=== PATIENT | female | born 1995 | race Caucasian/White ===

== ENCOUNTER 2021-03-02 19:15 | Emergency (ER) | payer OTHER, SELFPAY ==
--- NOTE | 2021-03-02 19:18 | ED.FEMALEGU ---
HPI - Female Genitourinary General Chief complaint: Urogenital-Female Stated complaint: uti Time Seen by Provider: 03/02/21 19:20 Source: patient, RN notes reviewed and old records reviewed Mode of arrival: ambulatory Limitations: no limitations History of Present Illness HPI Narrative: 25 female presents to the [facility] with complaints of a vaginal tear that occurred 3 days ago. Now has redness and inflammation. Tender to touch. Burning with urination externally only. Denies concerns for an STD Related Data Allergies Allergy/AdvReac Type Severity Reaction Status Date / Time No Known Allergies Allergy Mild Verified 03/02/21 19:32 Review of Systems Review of Systems: All systems reviewed & are unremarkable except as noted in HPI and below Constitutional: Constitutional: Reports no additional constitutional complaints Eyes: Eyes: Reports no additional eye complaints ENT: Reports system reviewed and no additional complaints, except as documented Cardiovascular: Cardiovascular: Reports no additional cardiovascular complaints Respiratory: Respiratory: Reports no additional respiratory complaints Gastrointestinal: Gastrointestinal: Reports no additional gastrointestinal complaints Genitourinary: Genitourinary: Reports as per HPI, Reports genital lesions and Reports pelvic pain Musculoskeletal: Musculoskeletal: Reports no additional musculoskeletal complaints Integumentary/Breasts: Skin/Breast: Reports system reviewed and no additional complaints, except as docu Neurologic: Reports system reviewed and no additional complaints, except as documented Psychiatric: Psychiatric: Reports no additional psychiatric complaints Allergic/Immunologic: Allergic/Immunologic: Reports no additional allergic/immunologic complaints PMFSH Past Medical History Medical History No significant medical problems Surgical History Surgical History (Updated 03/02/21 @ 20:19 by Aurea Tolbert) No pertinent past surgical history Family History Family History Grandparent Hypertension Family history of heart disease in male family member before age 55 Diabetes mellitus Social History Social History Smoking status: Never smoker Alcohol intake: never Comments At the time of my signature, I reviewed and agree with the nursing past medical, surgical, social, and family history. There is no relevant family history pertinent to the patient complaint. Exam Const: General: healthy appearing, no acute distress and alert Nutritional Appearance: well nourished Orientation/consciousness: patient oriented x3 Limitations: no limitations HENMT: Head: normal to inspection Ears: external ears normal Eyes: Pupils: Equal, round and reactive pupils present Neck: Neck: normal visual inspection, no lymphadenopathy and no meningeal signs Chest: Chest palpation & inspection: normal inspection of the chest Resp: Effort & Inspection: normal respiratory effort Cardio: Rate: regular rate GI: GI Palp: Yes Soft to palpation and No Tenderness to palpation present (GI) : Speculum Exam - Vagina: abnormal vaginal discharge white Speculum Exam - Cervix: normal appearance of the cervix and Cervical os closed Other: Chaperoned by Karin NOVA Female genitals images: 1. Half centimeter abrasion versus tear with surrounding redness. Large amounts of thick white drainage yeast in appearance. Back/Spine/Pelvis: Back: no CVA tenderness Skin: General skin exam: normal color Rashes: no rashes Wounds: no wounds Neuro: General: patient oriented x3, moves all extremities, no meningeal signs and no focal motor deficits Speech: normal speech Gait exam (Neuro): Normal gait present Extrem: General: normal to inspection Psych: Mental Status: mental status grossly normal Affect: normal affect Attitud
[2021-03-02 19:26] VITALS: BP 134/94; PULSE 90; RESP 20; TEMP 37.2; O2SAT 100
== END 2021-03-02 20:05 | disposition home or self-care (01) ==
PROVIDERS: Emergency Provider Nurse Practitioner
DX: B37.3 Candidiasis of vulva and vagina (principal); L08.9 Local infection of the skin and subcutaneous tissue, unspecified; S30.814A Abrasion of vagina and vulva, initial encounter; X58.XXXA Exposure to other specified factors, initial encounter
CPT/HCPCS: 99213; G0463

== ENCOUNTER 2021-03-05 05:37 | Emergency (ER) | payer OTHER, SELFPAY ==
[2021-03-05 05:47] VITALS: BP 132/81; PULSE 108; RESP 20; TEMP 36.3; O2SAT 100
[2021-03-05 06:49] LABS: Add Urine Microscopic? YES; Appearance Urine Cloudy (Clear); Bacteria Urine Trace /hpf; Bilirubin Urine Negative (Negative); Blood Urine 3+ (Negative); Color Urine Yellow (Yellow); Glucose Urine UA Negative (Negative); Ketones Urine Negative (Negative); Leukocyte Esterase Ur 3+ LEU/UL (Negative); Mucus Urine Rare /lpf; Nitrate Urine Negative (Negative); Protein Urine 1+ mg/dL (Negative); RBC Urine >75 /hpf (0-2); Specific Grav Ur 1.015 (1.001-1.035); Squamous Epithelial Cell Urine Many /hpf (Few); Urobilinogen Urine Negative mg/dL (<2.0); WBC Urine >75 /hpf
--- NOTE | 2021-03-05 07:09 | ED.FEMALEGU ---
HPI - Female Genitourinary General Chief complaint: Vaginal Bleeding Stated complaint: vaginal bleed, recent vaginal tear, fever Time Seen by Provider: 03/05/21 07:06 Source: patient Mode of arrival: ambulatory Limitations: no limitations History of Present Illness HPI Narrative: Patient is a 25-year-old female complaining of worsening vaginal bleeding that started last Friday. Patient states that she was seen in urgent care diagnosed with a yeast infection, UTI and a vaginal tear, was prescribed Bactrim and Diflucan. Patient currently taking Bactrim. Patient denies any abdominal pain, nausea, vomiting, fever or chills. Related Data Allergies Allergy/AdvReac Type Severity Reaction Status Date / Time No Known Allergies Allergy Mild Verified 03/02/21 19:32 Review of Systems Review of Systems: All systems reviewed & are unremarkable except as noted in HPI and below Constitutional: Constitutional: Denies body ache(s), Denies chills, Denies excessive sweating, Denies fatigue, Denies fever(s), Denies headache(s), Denies lethargy, Denies malaise, Denies weakness and Denies weight loss Eyes: Eyes: Denies blurry vision, Denies change in vision and Denies loss of vision ENT: Denies dizziness, Denies ear discharge, Denies headache(s), Denies lip swelling, Denies epistaxis, Denies nasal congestion, Denies neck pain, Denies throat swelling and Denies tongue swelling Cardiovascular: Cardiovascular: Denies chest pain, Denies chest pain at rest, Denies chest pain with activity, Denies diaphoresis, Denies rapid heart rate, Denies edema, Denies irregular heart rhythm, Denies lightheadedness, Denies palpitations, Denies dyspnea and Denies dyspnea on exertion Respiratory: Respiratory: Denies chest congestion, Denies cough, Denies hemoptysis, Denies dyspnea and Denies dyspnea on exertion Gastrointestinal: Gastrointestinal: Denies abdominal pain, Denies melena, Denies hematochezia, Denies diarrhea, Denies nausea, Denies vomiting and Denies hematemesis Musculoskeletal: Musculoskeletal: Denies abnormal gait, Denies deformity, Denies joint swelling, Denies limited range of motion, Denies neck pain and Denies numbness Neurologic: Denies Abnormal speech present, Denies abnormal gait, Denies confusion, Denies dizziness, Denies headache(s), Denies focal weakness, Denies loss of vision, Denies numbness, Denies Other visual disturbances, Denies Sensory deficit (Neuro) and Denies weakness Psychiatric: Psychiatric: Denies confusion, Denies depression, Denies auditory hallucinations, Denies homicidal ideation and Denies suicidal ideation Endocrine: Endocrine: Denies cold intolerance, Denies excessive sweating, Denies fatigue, Denies heat intolerance and Denies palpitations Hematologic/Lymphatic: Hematologic/Lymphatic: Denies easy bleeding and Denies easy bruising Allergic/Immunologic: Allergic/Immunologic: Denies lip swelling, Denies throat swelling and Denies tongue swelling PMFSH Past Medical History Medical History No significant medical problems Surgical History Surgical History No pertinent past surgical history Family History Family History Grandparent Hypertension Family history of heart disease in male family member before age 55 Diabetes mellitus Social History Social History Smoking status: Never smoker Alcohol intake: never Exam Const: General: cooperative, healthy appearing, comfortable, no acute distress, well developed, alert and awake; No confusion Orientation/consciousness: oriented to person, oriented to place, oriented to time, patient oriented x3 and No confusion Limitations: no limitations HENMT: Head: normal to inspection, normocephalic and atraumatic Ears: hearing grossly normal bilaterally, TM nor
[2021-03-05] MEDS: SODIUM CHLORIDE 0.9% IV 1,000 ML 999 ML IV CONT (07:37)
[2021-03-05 07:54] LABS: Basophils Percent Auto 0.2 % (0.2-1.2); Eosinophils Percent Auto 0.2 % (0-4.4); Hematocrit 39.1 % (37.0-47.0); Hemoglobin 13.5 g/dL (12.0-15.0); Immature Granulocyte Absolute 0.04 K/mm3 (0.00-0.031); Immature Granulocyte Percent A 0.6 % (0-0.5); Lymphocytes Absolute Auto 1.17 K/mm3 (0.9-3.2); Mean Corpuscular HGB Conc 34.5 g/dl (32-36); Mean Corpuscular Hemoglobin 31.6 pg (26-34); Mean Corpuscular Volume 91.6 fl (80-100); Monocytes Absolute Auto 0.8 K/mm3 (0.1-0.6); Monocytes Percent Auto 12.3 % (2.6-8.5); Neutrophils Absolute Auto 4.2 K/mm3 (1.3-6.7); Neutrophils Percent Auto 67.7 % (45.5-73.1); Platelet Count Result 189 k/mm3 (150-375); Red Blood Count 4.27 M/mm3 (4.2-5.4); Red Cell Distribution Width 12.2 % (11.5-14.5); White Blood Count 6.2 K/mm3 (4.5-10.0)
[2021-03-05 08:03] LABS: Alanine Aminotransferase 44 U/L (4-35); Albumin Level 4.5 g/dL (3.5-5.1); Alkaline Phosphatase 61 U/L (38-126); Anion Gap 8 mmol/L (8-16); Aspartate Amino Transferase 33 U/L (14-36); Bilirubin,Total 0.2 mg/dL (0.2-1.3); Blood Urea Nitrogen 10 mg/dL (7-17); Calcium 9.2 mg/dL (8.4-10.2); Carbon Dioxide 28 mmol/L (22-30); Chloride 101 mmol/L (98-107); Estimated Glomerular Filt Rate > 60; Glucose 91 mg/dL (65-110); Potassium 3.8 mmol/L (3.4-5.0); Sodium 137 mmol/L (137-145)
[2021-03-05 09:05] VITALS: BP 126/78; PULSE 86; O2SAT 100
== END 2021-03-05 09:18 | disposition home or self-care (01) ==
PROVIDERS: Emergency Medicine; Emergency Provider Emergency Medicine
DX: N93.8 Other specified abnormal uterine and vaginal bleeding (principal); N39.0 Urinary tract infection, site not specified
CPT/HCPCS: 36415; 80053; 81001; 81025; 85025; 87077; 87086; 87186; 96360; 99283; J7030

== ENCOUNTER 2021-07-26 17:08 | Outpatient (RCR) | payer OTHER, SELFPAY ==
[2021-07-27] MEDS: RHO(D) IMMUNE GLOBULIN 300 MCG/2 ML SYRINGE IM (11:04)
== END 2021-10-24 23:59 | disposition home or self-care (01) ==
LOC: ANHLAB 17:08
PROVIDERS: Visit Provider Obstetrics & Gynecology
DX: O20.0 Threatened abortion (principal); Z29.13 Encounter for prophylactic Rho(D) immune globulin; O36.0190 Maternal care for anti-D [Rh] antibodies, unspecified trimester, not applicable or unspecified; Z3A.00 Weeks of gestation of pregnancy not specified
CPT/HCPCS: 36415; 85461; 90384; 96372; J2790

== ENCOUNTER 2021-11-22 10:50 | Outpatient (CLI) | payer OTHER, SELFPAY ==
[2021-11-22 12:24] LABS: Hematocrit 30.4 % (37.0-47.0); Hemoglobin 10.3 g/dL (12.0-15.0)
[2021-11-22 12:32] LABS: Glucose 1 Hour PP 50gm Dose 184 mg/dL
[2021-11-22 13:14] LABS: HIV 1/2 Ab P24 Ag Result Negative (Negative)
[2021-11-23 03:52] LABS: Vitamin D 25 Hydroxy 38.9 ng/mL
[2021-11-23] MEDS: RHO(D) IMMUNE GLOBULIN 300 MCG/2 ML SYRINGE IM (10:40)
== END 2021-11-22 10:51 | disposition home or self-care (01) ==
LOC: ANHLAB 10:57
PROVIDERS: Visit Provider Advanced Practice Midwife
DX: Z36.89 Encounter for other specified antenatal screening (principal); O36.0130 Maternal care for anti-D [Rh] antibodies, third trimester, not applicable or unspecified
CPT/HCPCS: 36415; 82306; 82947; 85014; 85018; 85461; 86703; 90384; 96372; G0432; J2790

== ENCOUNTER 2021-12-24 20:57 | Observation (INO) | payer BC, SELFPAY ==
--- NOTE | 2021-12-24 20:57 | PC.NURSE ---
Pt arrives to unit with c/o feeling a large contraction at 1900 and another one at 1999. Pt states she has had 3 bottles of water to drink today and is feeling lower abdominal cramping. Pt denies any vaginal bleeding or leaking of fluid, denies sexual intercourse in the last 24 hours, and states she had a bowel movement today before coming in. Pt to bathroom to provide urine sample prior to hooking up to the monitors.
--- NOTE | 2021-12-24 21:15 | PC.NURSE ---
Water brought to pt with encouragement to drink both cups and call for a refill when they are empty. Pt verbalizes understanding.
[2021-12-24 21:18] VITALS: BP 140/84; PULSE 104
[2021-12-24 21:29] VITALS: BMI 40.8
--- NOTE | 2021-12-24 21:35 | PC.NURSE ---
Refill of water provided at this time
--- NOTE | 2021-12-24 21:37 | OBADM ---
This patient, Kelsey Harley, admitted to the OB room OB Post 117 for observation. Patient/family oriented to hospital policies and general routines including ID bracelet, bed and alarms, visiting hours, pain management, procedures, bathroom and other care routines, personal items, smoking policy, room service/diet, and visiting hours. Patient/Family are encouraged to report perceived risks to care and to ask questions if they do not understand what they are told or what they should do.
[2021-12-24 21:52] LABS: Appearance Urine Clear (Clear); Bilirubin Urine 1+ (Negative); Blood Urine Negative (Negative); Color Urine Yellow (Yellow); Glucose Urine UA Negative (Negative); Ketones Urine 4+ mg/dL (Negative); Leukocyte Esterase Ur Negative LEU/UL (Negative); Nitrate Urine Negative (Negative); Protein Urine Trace mg/dL (Negative); Urobilinogen Urine 0.2 mg/dL (<2.0)
[2021-12-24 21:56] LABS: Bacteria Urine Trace /hpf; Mucus Urine Rare /lpf; Squamous Epithelial Cell Urine Many /hpf (Few)
[2021-12-24 21:59] LABS: Add Urine Microscopic? YES
[2021-12-24 22:00] VITALS: BP 140/84
--- NOTE | 2021-12-24 22:00 | PC.NURSE ---
Dr Santos called via development writer and informed of pt arrival, c/o contractions (one at 1900 and one at 1999), no ctx on monitor or by palpation, UA results given to provider, CAT1 tracing with reactive NST and nonstop movement seen on monitor and felt by patient. Dr Santos orders for pt to be discharged to home with education and encouragement on oral hydration and to keep scheduled NST and office appointments.
--- NOTE | 2022-01-13 10:48 | P.PNOB_ITS ---
OB - Triage/Final Diagnosis Visit Information Comments/Additional reasons for admission: I have assessed the risk for this patient, Kelsey Harley, and determined that she would benefit from observation care. Evaluation Laboratory results: Laboratory Tests 12/24/21 21:24 Urine Color Yellow Urine Appearance Clear Urine pH 6.0 Ur Specific [place] 1.020 Urine Protein Trace Urine Glucose (UA) Negative Urine Ketones 4+ H Ur Blood (Man) Negative Urine Nitrate Negative Urine Bilirubin 1+ H Urine Urobilinogen 0.2 Leukocyte Esterase Rfl Negative Urine RBC 3-5 H Urine WBC 4-6 H Ur Squamous Epith Cells Many H Urine Bacteria Trace Urine Mucus Rare Final Diagnosis (1) False labor: Code(s): O47.9 - False labor, unspecified Status: Acute
== END 2021-12-24 22:12 | disposition home or self-care (01) ==
LOC: ANHOBPP 21:02
PROVIDERS: Admitting Provider Obstetrics & Gynecology; Visit Provider Obstetrics & Gynecology
DX: O47.03 False labor before 37 completed weeks of gestation, third trimester (principal); Z3A.33 33 weeks gestation of pregnancy
CPT/HCPCS: 59025; 81001; G0378; G0379

== ENCOUNTER 2021-12-31 09:45 | Outpatient (CLI) | payer BC, SELFPAY ==
[2021-12-31 10:40] VITALS: BP 144/82
== END 2021-12-31 10:41 | disposition home or self-care (01) ==
LOC: ANHOBOP 10:44
PROVIDERS: Visit Provider Obstetrics & Gynecology
DX: O41.8X90 Other specified disorders of amniotic fluid and membranes, unspecified trimester, not applicable or unspecified (principal); Z3A.00 Weeks of gestation of pregnancy not specified
CPT/HCPCS: 59025; 84112

== ENCOUNTER 2022-01-12 09:55 | Outpatient (RCR) | payer BC, SELFPAY ==
[2021-12-19 19:02] VITALS: BP 126/77; PULSE 92
[2021-12-22 10:37] VITALS: BP 139/70; PULSE 96
[2021-12-26 18:30] VITALS: BP 129/69; PULSE 91
[2021-12-29 10:25] VITALS: BP 130/63; PULSE 91
[2022-01-02 18:12] VITALS: BP 129/73; PULSE 84
[2022-01-05 16:41] VITALS: BP 139/79; PULSE 108
[2022-01-09 18:44] LABS: Basophils Percent Auto 0.2 % (0.2-1.2); Eosinophils Absolute Auto 0.1 K/mm3 (0-0.3); Eosinophils Percent Auto 1.1 % (0-4.4); Hematocrit 31.9 % (37.0-47.0); Hemoglobin 10.8 g/dL (12.0-15.0); Immature Granulocyte Absolute 0.03 K/mm3 (0.00-0.031); Immature Granulocyte Percent A 0.4 % (0-0.5); Lymphocytes Absolute Auto 2.01 K/mm3 (0.9-3.2); Mean Corpuscular HGB Conc 33.9 g/dl (32-36); Mean Corpuscular Hemoglobin 30.3 pg (26-34); Mean Corpuscular Volume 89.6 fl (80-100); Mean Platelet Volume 10.1 fl (7.4-10.4); Monocytes Absolute Auto 0.8 K/mm3 (0.1-0.6); Monocytes Percent Auto 8.9 % (2.6-8.5); Neutrophils Absolute Auto 5.5 K/mm3 (1.3-6.7); Neutrophils Percent Auto 65.4 % (45.5-73.1); Platelet Count Result 253 k/mm3 (150-375); Red Blood Count 3.56 M/mm3 (4.2-5.4); Red Cell Distribution Width 13.6 % (11.5-14.5); White Blood Count 8.4 K/mm3 (4.5-10.0)
[2022-01-09 19:02] LABS: Alanine Aminotransferase 20 U/L (6-35); Albumin Level 3.6 g/dL (3.5-5.1); Alkaline Phosphatase 127 U/L (38-126); Anion Gap 10 mmol/L (8-16); Aspartate Amino Transferase 19 U/L (14-36); Bilirubin,Total 0.3 mg/dL (0.2-1.3); Blood Urea Nitrogen 9 mg/dL (7-17); Calcium 8.7 mg/dL (8.4-10.2); Carbon Dioxide 19 mmol/L (22-30); Chloride 106 mmol/L (98-107); Estimated Glomerular Filt Rate > 60; Glucose 106 mg/dL (65-110); Potassium 3.5 mmol/L (3.4-5.0); Sodium 135 mmol/L (137-145); Uric Acid 4.9 mg/dL (2.5-7.5)
[2022-01-09 19:07] VITALS: BP 138/83; PULSE 87
--- NOTE | 2022-01-09 19:42 | PC.NURSE ---
Received call from Anita Varghese to order [facility] labs when pt arrives for NST. pt had elevated BP in office. 1902- called Anita Varghese- labs reviewed. pt ok to d/c home.
[2022-01-12 10:57] VITALS: BP 142/85; PULSE 83
== END 2022-01-26 15:33 | disposition home or self-care (01) ==
LOC: ANHOBOP 09:55
PROVIDERS: Advanced Practice Midwife; Visit Provider Obstetrics & Gynecology
DX: O26.893 Other specified pregnancy related conditions, third trimester (principal); R03.0 Elevated blood-pressure reading, without diagnosis of hypertension; Z3A.33 33 weeks gestation of pregnancy; O24.419 Gestational diabetes mellitus in pregnancy, unspecified control; Z3A.35 35 weeks gestation of pregnancy; O16.3 Unspecified maternal hypertension, third trimester; Z3A.36 36 weeks gestation of pregnancy
CPT/HCPCS: 36415; 59025; 80053; 84550; 85025

== ENCOUNTER 2022-01-13 17:41 | Inpatient (IN) | payer BC, SELFPAY ==
[2022-01-13] VITALS (17 sets, daily range): BP systolic 109–155; BP diastolic 64–92; PULSE 102–123; RESP 18; TEMP 37.2–37.7; BMI 40.3
[2022-01-13] MEDS: LACTATED RINGERS 1,000 ML 999 ML IV CONT (18:30)
[2022-01-13 18:41] LABS: Glucose Point of Care 93 mg/dl (65-105)
[2022-01-13 19:21] LABS: Appearance Urine Clear (Clear); Basophils Percent Auto 0.2 % (0.2-1.2); Bilirubin Urine Negative (Negative); Blood Urine Negative (Negative); Color Urine Yellow (Yellow); Eosinophils Percent Auto 0.2 % (0-4.4); Glucose Urine UA Negative (Negative); Hematocrit 33.1 % (37.0-47.0); Hemoglobin 11.1 g/dL (12.0-15.0); Immature Granulocyte Absolute 0.05 K/mm3 (0.00-0.031); Immature Granulocyte Percent A 0.5 % (0-0.5); Ketones Urine 4+ mg/dL (Negative); Leukocyte Esterase Ur Negative LEU/UL (Negative); Lymphocytes Absolute Auto 0.78 K/mm3 (0.9-3.2); Lymphocytes Percent Auto 7.4 % (18.3-44.2); Mean Corpuscular HGB Conc 33.5 g/dl (32-36); Mean Corpuscular Volume 89.5 fl (80-100); Mean Platelet Volume 10.7 fl (7.4-10.4); Monocytes Absolute Auto 0.9 K/mm3 (0.1-0.6); Monocytes Percent Auto 8.6 % (2.6-8.5); Neutrophils Absolute Auto 8.7 K/mm3 (1.3-6.7); Neutrophils Percent Auto 83.1 % (45.5-73.1); Nitrate Urine Negative (Negative); Platelet Count Result 204 k/mm3 (150-375); Protein Urine Negative (Negative); Red Cell Distribution Width 13.8 % (11.5-14.5); Urobilinogen Urine 0.2 mg/dL (<2.0); White Blood Count 10.5 K/mm3 (4.5-10.0); pH Urine 6.5 (5.0-9.0)
[2022-01-13 19:28] LABS: Amorphous Sediment Urine Few; Bacteria Urine Trace /hpf; Mucus Urine Rare /lpf; Squamous Epithelial Cell Urine Occasional /hpf (Few); WBC Urine 0-3 /hpf
[2022-01-13 19:29] LABS: Add Urine Microscopic? YES
[2022-01-13 19:39] LABS: Alanine Aminotransferase 19 U/L (6-35); Albumin Level 4.1 g/dL (3.5-5.1); Alkaline Phosphatase 145 U/L (38-126); Anion Gap 8 mmol/L (8-16); Aspartate Amino Transferase 20 U/L (14-36); Bilirubin,Total 0.4 mg/dL (0.2-1.3); Blood Urea Nitrogen 5 mg/dL (7-17); Calcium 9.2 mg/dL (8.4-10.2); Carbon Dioxide 22 mmol/L (22-30); Chloride 106 mmol/L (98-107); Estimated Glomerular Filt Rate > 60; Glucose 92 mg/dL (65-110); Potassium 3.5 mmol/L (3.4-5.0); Sodium 136 mmol/L (137-145)
[2022-01-13] MEDS: LACTATED RINGERS 1,000 ML 125 ML IV CONT ×2 (19:47→22:28)
[2022-01-13 20:35] LABS: Influenza A QL RT-PCR Negative (Negative); Influenza B QL RT-PCR Negative (Negative); RSV RNA, RT-PCR Negative (Negative); SARS-CoV-2 RNA PCR Negative
--- NOTE | 2022-01-13 21:33 | OBADM ---
This patient, Kelsey Harley, admitted to the OB room Labor/Delivery/Recovery 106 for observation. Patient/family oriented to hospital policies and general routines including ID bracelet, bed and alarms, visiting hours, pain management, procedures, bathroom and other care routines, personal items, smoking policy, room service/diet, and visiting hours. Patient/Family are encouraged to report perceived risks to care and to ask questions if they do not understand what they are told or what they should do.
--- NOTE | 2022-01-13 21:54 | PM.IMHP ---
H&P: HPI History of Present Illness Date/Time: 01/13/22 21:54 delete Chief Complaint: delete [facility] Past Medical History Medical History (Updated 01/14/22 @ 18:23 by Henrietta Charles CRNA) Anxiety and depression Gestational diabetes Gestational hypertension Morbid obesity No significant medical problems Scoliosis Surgical History Surgical History No pertinent past surgical history Family History Family History Grandparent Family history of heart disease in male family member before age 55 Diabetes mellitus Hypertension Lung cancer Alcohol abuse Father Hypertension Sibling Ovarian cancer PCOS (polycystic ovarian syndrome) Bipolar 1 disorder Heart murmur Mother Bipolar 1 disorder Social History Social History Smoking status: Never smoker Second hand tobacco smoke exposure: No Alcohol intake: never Substance use: former Lack of Transportation: No Lack of Food: Never True Current Housing: I Have Housing Concerned About Future Housing: No Difficulty Paying Gas/Electric Bills: No Difficulty Paying for Meds: No Currently Unemployed: No Education: Decline to Answer Difficulty w/ Childcare or Family Care: No Spiritual care concerns: No Meds Home Medications and Allergies Home Medications Medication Instructions Recorded Confirmed Type PNV 153-FA 400 mcg-om3 35 mg-dha 2 tablet PO ONCE 01/12/22 01/14/22 History 25 mg-epa 5 mg-fish oil chew tablet ( Gummies) cholecalciferol (vitamin D3) 50 150 mcg PO DAILY 01/12/22 01/14/22 History mcg (2,000 unit) capsule (Vitamin D3) cyclobenzaprine 5 mg tablet 5 mg PO HS PRN Muscle Pain 01/12/22 01/14/22 History ferrous sulfate 143 mg (45 mg 143 mg PO DAILY 01/12/22 01/14/22 History iron) tablet,extended release insulin NPH isoph U-100 human 100 14 unit subcut HS 01/12/22 01/14/22 History unit/mL subcutaneous suspension (Novolin N NPH U-100 Insulin isophane) valacyclovir 500 mg tablet 500 mg PO DAILY 01/12/22 01/14/22 History (Valtrex) Allergies Allergy/AdvReac Type Severity Reaction Status Date / Time almond Allergy Swelling Verified 01/14/22 10:33 banana Allergy Swelling Verified 01/14/22 10:33 of Lip/Tongue/Throat bee venom protein (honey bee) Allergy Swelling Verified 01/14/22 10:33 beeswax Allergy Itching Verified 01/14/22 10:33 honey Allergy Difficulty Verified 01/14/22 10:33 Breathing kiwi Allergy Swelling Verified 01/14/22 10:33 of Lip/Tongue/Throat latex Allergy Itching Verified 01/14/22 10:33 sesame oil Allergy Swelling Verified 01/14/22 10:33 sesame seed Allergy Gastrointestinal Verified 01/14/22 10:33 Upset Vital Signs Vital Signs - 24 hr 01/13/22 17:53 01/13/22 18:16 01/13/22 18:31 Temperature 37.7 C H Pulse Rate 109 H 114 H Respiratory Rate Blood Pressure 133/87 144/84 H Oxygen Delivery 01/13/22 18:46 01/13/22 19:01 01/13/22 19:16 Temperature Pulse Rate 112 H 117 H 110 H Respiratory Rate Blood Pressure 132/65 143/73 H 136/68 Oxygen Delivery 01/13/22 19:31 01/13/22 19:46 01/13/22 20:01 Temperature Pulse Rate 123 H 111 H 107 H Respiratory Rate Blood Pressure 141/69 H 155/66 H 135/69 Oxygen Delivery 01/13/22 20:16 01/13/22 20:31 01/13/22 20:46 Temperature Pulse Rate 108 H 106 H 112 H Respiratory Rate Blood Pressure 127/67 120/79 109/64 Oxygen Delivery 01/13/22 20:00 01/13/22 21:01 01/13/22 21:16 Temperature 37.4 C Pulse Rate 104 H 102 H Respiratory Rate 18 Blood Pressure 141/92 H 145/80 H Oxygen Delivery 01/13/22 21:31 01/13/22 21:32 Temperature Pulse Rate 102 H Respiratory Rate Blood Pressure 140/67 Oxygen Delivery Room Air H&P: Results Labs Labs
[2022-01-13 22:19] LABS: Glucose Point of Care 111 mg/dl (65-105)
[2022-01-13] MEDS: INSULIN HUMAN NPH (*BKC) 100 UNITS/ML 14 UNITS SUB-Q (23:51)
[2022-01-14] VITALS (46 sets, daily range): BP systolic 120–138; BP diastolic 64–76; PULSE 94–134; RESP 17–18; TEMP 37.1–38.2; O2SAT 97–100
[2022-01-14] MEDS: ACETAMINOPHEN 500 MG TABLET 1000 MG PO ×4 (02:46→23:54)
[2022-01-14 06:25] LABS: Glucose Point of Care 84 mg/dl (65-105)
[2022-01-14] MEDS: LACTATED RINGERS 1,000 ML 125 ML IV CONT ×2 (06:25→23:58)
[2022-01-14] MEDS: ALBUTEROL SULFATE NEB 2.5 MG/3 ML INH INHALATION (06:39)
--- NOTE | 2022-01-14 08:23 | PM.IMHP ---
H&P: HPI History of Present Illness Date/Time: 01/14/22 08:23 Chief Complaint: 26-year-old 1 at 36 weeks who presented with maternal elevated body temperature and upper respiratory symptoms. She had tachycardia upon evaluation in Labor delivery. There was good variability but this tachycardia persisted for hours. She has been tested for flu, COVID, RSV. All negative. Her upper respiratory symptoms persist but the fever has resolved or elevated body temperature has resolved and tachycardia has resolved. There was good variability throughout the tachycardia episodes. Patient is to be induced tonight at midnight for gestational hypertension. She also has reasonably good controlled gestational diabetes that is insulin dependent with insulin doses at night only. She has some mild chest congestion and irritation of Denies any contractions, loss of fluid, vaginal bleeding. Review of Systems Review of Systems: All systems reviewed & are unremarkable except as noted in HPI and below Constitutional: Constitutional: Denies chills, Denies fatigue, Denies fever(s) and Denies weakness Eyes: Eyes: Denies blurry vision, Denies change in vision, Denies loss of peripheral vision, Denies loss of vision, Denies other visual disturbances and Denies eye pain ENT: Denies vertigo, Denies dizziness, Denies hearing loss, Denies mouth pain, Denies nasal obstruction, Denies neck mass and Denies neck pain Cardiovascular: Cardiovascular: Denies chest pain, Denies diaphoresis, Denies syncope, Denies leg edema and Denies dyspnea Respiratory: Respiratory: Denies chest congestion, Denies cough, Denies hemoptysis, Denies dyspnea and Denies wheezing Gastrointestinal: Gastrointestinal: Denies abdominal pain, Denies constipation, Denies diarrhea, Denies nausea and Denies vomiting Genitourinary: Genitourinary: Denies hematuria, Denies change in libido, Denies nocturia, Denies genital lesions, Denies flank pain and Denies urinary urgency Musculoskeletal: Musculoskeletal: Denies abnormal gait, Denies back pain, Denies myalgias, Denies arthralgias, Denies joint swelling, Denies muscle weakness and Denies neck pain Integumentary/Breasts: Skin/Breast: Denies swelling, Denies breast pain, Denies breast mass, Denies dry skin, Denies nipple discharge, Denies unusual bruising and Denies jaundice Neurologic: Denies Neuro-related abnormal movements, Denies Abnormal speech present, Denies abnormal gait, Denies behavioral changes, Denies confusion, Denies vertigo, Denies dizziness, Denies syncope, Denies loss of vision, Denies memory loss, Denies convulsions and Denies weakness Psychiatric: Psychiatric: Denies abnormal sleep pattern, Denies behavioral changes, Denies change in libido, Denies confusion, Denies depression, Denies anhedonia and Denies memory loss Endocrine: Endocrine: Reports no additional endocrine complaints, Denies change in libido and Denies fatigue Hematologic/Lymphatic: Hematologic/Lymphatic: Reports no additional hematologic/lymphatic complaints Allergic/Immunologic: Allergic/Immunologic: Reports no additional allergic/immunologic complaints and Denies wheezing PMFSH Past Medical History Medical History No significant medical problems Surgical History Surgical History No pertinent past surgical history Family History Family History (Updated 01/12/22 @ 13:54 by Valentine Rossi RN) Grandparent Family history of heart disease in male family member before age 55 Diabetes mellitus Hypertension Lung cancer Alcohol abuse Father Hypertension Sibling Ovarian cancer PCOS (polycystic ovarian syndrome) Bipolar 1 disorder Heart murmur Mother Bipolar 1 disorder Social History Social History Smoking status: Never smoker Alcohol intake: never Substance use: for
--- NOTE | 2022-01-14 08:37 | WPDANESEPP ---
Anes - Eval Pre Procedure Procedure: labor epidural Date/Time: 01/14/22 08:37 Preop Diagnosis: labor pain Pre Op Diagnosis: contractions Patient Data Age: 26 Gender: F Height: 1.65 m Weight: 110 kg Last Vital Signs Temp 37.2 C 01/14/22 07:09 Pulse 134 H 01/14/22 07:09 Resp 17 01/14/22 06:40 BP 137/71 01/14/22 07:09 Pulse Ox 100 01/14/22 07:08 O2 Del Method Room Air 01/13/22 21:32 Allergies Allergy/AdvReac Type Severity Reaction Status Date / Time almond Allergy Swelling Verified 01/12/22 13:40 banana Allergy Swelling Verified 01/12/22 13:40 of Lip/Tongue/Throat bee venom protein (honey bee) Allergy Swelling Verified 01/12/22 13:43 beeswax Allergy Itching Verified 01/12/22 13:40 honey Allergy Difficulty Verified 01/12/22 13:43 Breathing kiwi Allergy Swelling Verified 01/12/22 13:40 of Lip/Tongue/Throat latex Allergy Itching Verified 01/12/22 13:40 sesame oil Allergy Swelling Verified 01/12/22 13:40 sesame seed Allergy Gastrointestinal Verified 01/12/22 13:43 Upset Home Medications Medication Instructions Recorded Confirmed Type PNV 153-FA 400 mcg-om3 35 mg-dha 2 tablet PO ONCE 01/12/22 01/13/22 History 25 mg-epa 5 mg-fish oil chew tablet ( Gummies) cholecalciferol (vitamin D3) 50 150 mcg PO DAILY 01/12/22 01/13/22 History mcg (2,000 unit) capsule (Vitamin D3) cyclobenzaprine 5 mg tablet 5 mg PO HS PRN Muscle Pain 01/12/22 01/13/22 History ferrous sulfate 143 mg (45 mg 143 mg PO DAILY 01/12/22 01/13/22 History iron) tablet,extended release insulin NPH isoph U-100 human 100 14 unit subcut HS 01/12/22 01/13/22 History unit/mL subcutaneous suspension (Novolin N NPH U-100 Insulin isophane) valacyclovir 500 mg tablet 500 mg PO DAILY 01/12/22 01/13/22 History (Valtrex) Laboratory Tests 01/13/22 01/13/22 01/13/22 18:37 19:07 19:07 WBC 10.5 K/mm3 H K/mm3 (4.5-10.0) RBC 3.70 M/mm3 L M/mm3 (4.2-5.4) Hgb 11.1 g/dL L g/dL (12.0-15.0) Hct 33.1 % L % (37.0-47.0) MCV 89.5 fl fl (80-100) MCH 30.0 pg pg (26-34) MCHC 33.5 g/dl g/dl (32-36) RDW 13.8 % % (11.5-14.5) Plt Count 204 k/mm3 k/mm3 (150-375) MPV 10.7 fl H fl (7.4-10.4) Immature Gran % (Auto) 0.5 % % (0-0.5) Neut % (Auto) 83.1 % H % (45.5-73.1) Lymph % (Auto) 7.4 % L % (18.3-44.2) [place] % (Auto) 8.6 % H % (2.6-8.5) Eos % (Auto) 0.2 % % (0-4.4) Baso % (Auto) 0.2 % % (0.2-1.2) Lymph # (Auto) 0.78 K/mm3 L K/mm3 (0.9-3.2) [place] # (Auto) 0.9 K/mm3 H K/mm3 (0.1-0.6) Eos # (Auto) 0.0 K/mm3 K/mm3 (0-0.3) Baso # (Auto) 0.0 K/mm3 K/mm3 (0.0-0.1) Abs Immat Gran (auto) 0.05 K/mm3 H K/mm3 (0.00-0.031) Absolute Neuts (auto) 8.7 K/mm3 H K/mm3 (1.3-6.7) Absolute Nucleated RBC 0.0 K/mm3 K/mm3 (0.0-0.012) Nucleated RBC % 0.0 % % (0.0-0.2) Sodium 136 mmol/L L mmol/L (137-145) Potassium 3.5 mmol/L mmol/L (3.4-5.0) Chloride 106 mmol/L mmol/L (98-107) Carbon Dioxide 22 mmol/L mmol/L (22-30) Anion Gap 8 mmol/L mmol/L (8-16) BUN 5 mg/dL L mg/dL (7-17) Creatinine 0.60 mg/dL L mg/dL (0.7-1.0) Estim Creat Clear Calc Not Reportable Estimated GFR > 60 (59 - ) Glucose 92 mg/dL mg/dL (65-110) POC Capillary Glucose 93 mg/dl mg/dl (65-105) Calcium 9.2 mg/dL mg/dL (8.4-10.2) Total Bilirubin 0.4 mg/dL mg/dL (0.2-1.3) AST 20 U/L U/L (14-36) ALT 19 U/L U/L (6-35) Alkaline Phosphatase 145 U/L H U/L (38-126) Total Protein 7.0 g/dL g/dL (6.3-8.2) Albumin 4.1 g/dL g/dL (3.5-5.1) Urine Color Ur
--- NOTE | 2022-01-14 10:01 | LDADM ---
This patient, Kelsey Harley, was admitted to Labor/Delivery/Recovery 106 on 01/14/22 at 09:33. Plans for labor, pain management and were discussed with patient. Patient/family oriented to hospital policies and general routines including ID bracelet, bed and alarms, visiting hours, pain management, procedures, bathroom and other care routines, personal items, smoking policy, room service/diet and guest tray routines, security routines, and visiting hours. Patient/Family are encouraged to report perceived risks to care and to ask questions if they do not understand what they are told or what they should do. See [facility] for further documentation.
[2022-01-14 10:48] LABS: Glucose Point of Care 113 mg/dl (65-105)
[2022-01-14 13:30] LABS: Glucose Point of Care 109 mg/dl (65-105)
--- NOTE | 2022-01-14 16:49 | PC.NURSE ---
Bright light exam performed. No lesions present at this time. Patient denies having any lesions recently.
--- NOTE | 2022-01-14 18:19 | WPDANESEPP ---
Anes - Eval Pre Procedure Procedure: Labor epidural Date/Time: 01/14/22 18:19 Pre Op Diagnosis: contractions Patient Data Age: 26 Gender: F Height: 1.65 m Weight: 110 kg Last Vital Signs Temp 37.9 C H 01/14/22 16:11 Pulse 110 H 01/14/22 16:09 Resp 17 01/14/22 06:40 BP 120/67 01/14/22 16:09 Pulse Ox 97 01/14/22 16:08 O2 Del Method Room Air 01/13/22 21:32 Allergies Allergy/AdvReac Type Severity Reaction Status Date / Time almond Allergy Swelling Verified 01/14/22 10:33 banana Allergy Swelling Verified 01/14/22 10:33 of Lip/Tongue/Throat bee venom protein (honey bee) Allergy Swelling Verified 01/14/22 10:33 beeswax Allergy Itching Verified 01/14/22 10:33 honey Allergy Difficulty Verified 01/14/22 10:33 Breathing kiwi Allergy Swelling Verified 01/14/22 10:33 of Lip/Tongue/Throat latex Allergy Itching Verified 01/14/22 10:33 sesame oil Allergy Swelling Verified 01/14/22 10:33 sesame seed Allergy Gastrointestinal Verified 01/14/22 10:33 Upset Home Medications Medication Instructions Recorded Confirmed Type PNV 153-FA 400 mcg-om3 35 mg-dha 2 tablet PO ONCE 01/12/22 01/14/22 History 25 mg-epa 5 mg-fish oil chew tablet ( Gummies) cholecalciferol (vitamin D3) 50 150 mcg PO DAILY 01/12/22 01/14/22 History mcg (2,000 unit) capsule (Vitamin D3) cyclobenzaprine 5 mg tablet 5 mg PO HS PRN Muscle Pain 01/12/22 01/14/22 History ferrous sulfate 143 mg (45 mg 143 mg PO DAILY 01/12/22 01/14/22 History iron) tablet,extended release insulin NPH isoph U-100 human 100 14 unit subcut HS 01/12/22 01/14/22 History unit/mL subcutaneous suspension (Novolin N NPH U-100 Insulin isophane) valacyclovir 500 mg tablet 500 mg PO DAILY 01/12/22 01/14/22 History (Valtrex) Laboratory Tests 01/13/22 01/13/22 01/13/22 18:37 19:07 19:07 WBC 10.5 K/mm3 H K/mm3 (4.5-10.0) RBC 3.70 M/mm3 L M/mm3 (4.2-5.4) Hgb 11.1 g/dL L g/dL (12.0-15.0) Hct 33.1 % L % (37.0-47.0) MCV 89.5 fl fl (80-100) MCH 30.0 pg pg (26-34) MCHC 33.5 g/dl g/dl (32-36) RDW 13.8 % % (11.5-14.5) Plt Count 204 k/mm3 k/mm3 (150-375) MPV 10.7 fl H fl (7.4-10.4) Immature Gran % (Auto) 0.5 % % (0-0.5) Neut % (Auto) 83.1 % H % (45.5-73.1) Lymph % (Auto) 7.4 % L % (18.3-44.2) [place] % (Auto) 8.6 % H % (2.6-8.5) Eos % (Auto) 0.2 % % (0-4.4) Baso % (Auto) 0.2 % % (0.2-1.2) Lymph # (Auto) 0.78 K/mm3 L K/mm3 (0.9-3.2) [place] # (Auto) 0.9 K/mm3 H K/mm3 (0.1-0.6) Eos # (Auto) 0.0 K/mm3 K/mm3 (0-0.3) Baso # (Auto) 0.0 K/mm3 K/mm3 (0.0-0.1) Abs Immat Gran (auto) 0.05 K/mm3 H K/mm3 (0.00-0.031) Absolute Neuts (auto) 8.7 K/mm3 H K/mm3 (1.3-6.7) Absolute Nucleated RBC 0.0 K/mm3 K/mm3 (0.0-0.012) Nucleated RBC % 0.0 % % (0.0-0.2) Sodium 136 mmol/L L mmol/L (137-145) Potassium 3.5 mmol/L mmol/L (3.4-5.0) Chloride 106 mmol/L mmol/L (98-107) Carbon Dioxide 22 mmol/L mmol/L (22-30) Anion Gap 8 mmol/L mmol/L (8-16) BUN 5 mg/dL L mg/dL (7-17) Creatinine 0.60 mg/dL L mg/dL (0.7-1.0) Estim Creat Clear Calc Not Reportable Estimated GFR > 60 (59 - ) Glucose 92 mg/dL mg/dL (65-110) POC Capillary Glucose 93 mg/dl mg/dl (65-105) Calcium 9.2 mg/dL mg/dL (8.4-10.2) Total Bilirubin 0.4 mg/dL mg/dL (0.2-1.3) AST 20 U/L U/L (14-36) ALT 19 U/L U/L (6-35) Alkaline Phosphatase 145 U/L H U/L (38-126) Total Protein 7.0 g/dL g/dL (6.3-8.2) Albumin 4.1 g/dL g/dL (3.5-5.1) Urine Color Urine Appearance Uri
[2022-01-14 20:03] LABS: Glucose Point of Care 130 mg/dl (65-105)
[2022-01-14] MEDS: INSULIN HUMAN NPH (*BKC) 100 UNITS/ML 14 UNITS SUB-Q (20:27)
[2022-01-14] MEDS: OXYTOCIN 30 UNITS/NS 500 ML 30 UNITS/500 ML BAG 6 UNITS IV CONT (23:58)
[2022-01-15] VITALS (213 sets, daily range): BP systolic 106–169; BP diastolic 53–99; PULSE 43–133; RESP 20; TEMP 36.6–37.9; O2SAT 78–100
[2022-01-15 04:58] LABS: Glucose Point of Care 79 mg/dl (65-105)
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
[2022-01-15] MEDS: fentaNYL CITRATE INJ (*CRX) 100 MCG/2 ML VIAL IV PUSH ×2 (07:31→10:20)
[2022-01-15 07:51] LABS: Basophils Percent Auto 0.2 % (0.2-1.2); Eosinophils Percent Auto 0.2 % (0-4.4); Hematocrit 28.4 % (37.0-47.0); Hemoglobin 9.6 g/dL (12.0-15.0); Immature Granulocyte Absolute 0.04 K/mm3 (0.00-0.031); Immature Granulocyte Percent A 0.7 % (0-0.5); Lymphocytes Absolute Auto 0.63 K/mm3 (0.9-3.2); Lymphocytes Percent Auto 11.2 % (18.3-44.2); Mean Corpuscular HGB Conc 33.8 g/dl (32-36); Mean Corpuscular Hemoglobin 30.7 pg (26-34); Mean Corpuscular Volume 90.7 fl (80-100); Mean Platelet Volume 10.5 fl (7.4-10.4); Monocytes Absolute Auto 0.6 K/mm3 (0.1-0.6); Monocytes Percent Auto 11.2 % (2.6-8.5); Neutrophils Absolute Auto 4.3 K/mm3 (1.3-6.7); Neutrophils Percent Auto 76.5 % (45.5-73.1); Platelet Count Result 151 k/mm3 (150-375); Red Blood Count 3.13 M/mm3 (4.2-5.4); Red Cell Distribution Width 14.2 % (11.5-14.5); White Blood Count 5.6 K/mm3 (4.5-10.0)
[2022-01-15 08:01] LABS: Alanine Aminotransferase 18 U/L (6-35); Albumin Level 3.2 g/dL (3.5-5.1); Alkaline Phosphatase 133 U/L (38-126); Anion Gap 8 mmol/L (8-16); Aspartate Amino Transferase 20 U/L (14-36); Bilirubin,Total 0.4 mg/dL (0.2-1.3); Blood Urea Nitrogen 2 mg/dL (7-17); Calcium 7.8 mg/dL (8.4-10.2); Carbon Dioxide 18 mmol/L (22-30); Chloride 107 mmol/L (98-107); Estimated CRCL calculation 172 ml/min; Estimated Glomerular Filt Rate > 60; Glucose 81 mg/dL (65-110); Potassium 3.2 mmol/L (3.4-5.0); Sodium 133 mmol/L (137-145)
[2022-01-15] MEDS: LACTATED RINGERS 1,000 ML 125 ML IV CONT (08:30)
[2022-01-15] MEDS: valACYclovir HCL 500 MG TABLET PO ×2 (11:10→22:35)
[2022-01-15 11:17] LABS: Glucose Point of Care 93 mg/dl (65-105)
[2022-01-15 14:07] LABS: Glucose Point of Care 74 mg/dl (65-105)
[2022-01-15 14:46] LABS: Rapid Plasma Reagin Non-Reactive (NonReactive)
[2022-01-15 16:07] LABS: Glucose Point of Care 67 mg/dl (65-105)
--- NOTE | 2022-01-15 19:35 | PM.OBPRVD ---
OB - Delivery Note Procedure Procedure: Events: Gestational Diabetes, Gestational Hypertension and Other (viral illness) Induction method: Per Pitocin Protocol Delivery augmentation: Rupture of Membranes Delivery monitor: External FHT and Internal Uterine Route of delivery: Laceration Description: Perineal - 1st Degree Delivery repair: vicryl Specimen: Yes Quantitative Blood Loss (ml): 225 Anesthesia type: Epidural Disposition: Floor Narrative: mom and baby stable and doing skin to skin Baby Date of : 01/15/22 Time of : 19:12 Weeks of gestation at delivery: 37 Infant gender: Male Weight (pounds): 7 Weight (ounces): 9 presentation: vertex position: Left Occiput Anterior Placenta delivery description: Spontaneous Cord Vessel Description: 3 Vessels, Clamped/Cut and Delayed Cord Clamping score one minute: 9 score five minutes: 9
--- NOTE | 2022-01-15 21:46 | PC.NURSE ---
Patient transferred to post room #286 per wheelchair from labor and delivery. Support person present. Oriented to unit, room, information board, rooming in, admission packet and security measures. Patient verbalizes understanding.
[2022-01-15] MEDS: IBUPROFEN 600 MG TABLET PO (22:35)
[2022-01-16] VITALS (10 sets, daily range): BP systolic 122–149; BP diastolic 64–99; PULSE 78–113; RESP 18; TEMP 36.1–37.2; O2SAT 99–100
[2022-01-16] MEDS: ALBUTEROL SULFATE NEB 2.5 MG/3 ML INH INHALATION ×2 (02:52→23:54)
[2022-01-16 05:58] LABS: Hematocrit 28.3 % (37.0-47.0); Hemoglobin 9.4 g/dL (12.0-15.0)
--- NOTE | 2022-01-16 07:00 | PC.NURSE ---
PT introductions made and plan of care discussed per post , pain management, breast bottle feeding, pumping, daily care activities. PT and spouse both recipients of such instructions and no barriers to learning identified at this time. PT received such instructions this shift per one to one discussion , mom baby care guide and demonstrations. PT verbalized understanding of such care.
--- NOTE | 2022-01-16 07:20 | PM.OBPNVD ---
OB - PN: Subj Subjective Date/time seen: 01/16/22 07:20 s/p vaginal delivery day 1 OB - PN: Obj Data Labs CBC & Chem 7: 01/16/22 04:06 01/15/22 06:52 Labs: Laboratory Results - last 24 hr 01/14/22 01/15/22 01/15/22 10:00 06:52 06:52 WBC 5.6 RBC 3.13 L Hgb 9.6 L Hct 28.4 L MCV 90.7 MCH 30.7 MCHC 33.8 RDW 14.2 Plt Count 151 MPV 10.5 H Immature Gran % (Auto) 0.7 H Neut % (Auto) 76.5 H Lymph % (Auto) 11.2 L [place] % (Auto) 11.2 H Eos % (Auto) 0.2 Baso % (Auto) 0.2 Lymph # (Auto) 0.63 L [place] # (Auto) 0.6 Eos # (Auto) 0.0 Baso # (Auto) 0.0 Abs Immat Gran (auto) 0.04 H Absolute Neuts (auto) 4.3 Absolute Nucleated RBC 0.0 Nucleated RBC % 0.0 Sodium 133 L Potassium 3.2 L Chloride 107 Carbon Dioxide 18 L Anion Gap 8 BUN 2 L Creatinine 0.50 L Estim Creat Clear Calc 172 Estimated GFR > 60 Glucose 81 POC Capillary Glucose Calcium 7.8 L Total Bilirubin 0.4 AST 20 ALT 18 Alkaline Phosphatase 133 H Total Protein 6.0 L Albumin 3.2 L RPR Non-reactive Blood Type Antibody Screen Screen Baby's Blood Type Baby's SIOBHAN Doses of RhIg Required 01/15/22 01/15/22 01/15/22 11:12 14:05 16:00 WBC RBC Hgb Hct MCV MCH MCHC RDW Plt Count MPV Immature Gran % (Auto) Neut % (Auto) Lymph % (Auto) [place] % (Auto) Eos % (Auto) Baso % (Auto) Lymph # (Auto) [place] # (Auto) Eos # (Auto) Baso # (Auto) Abs Immat Gran (auto) Absolute Neuts (auto) Absolute Nucleated RBC Nucleated RBC % Sodium Potassium Chloride Carbon Dioxide Anion Gap BUN Creatinine Estim Creat Clear Calc Estimated GFR Glucose POC Capillary Glucose 93 74 67 Calcium Total Bilirubin AST ALT Alkaline Phosphatase Total Protein Albumin RPR Blood Type Antibody Screen Screen Baby's Blood Type Baby's SIOBHAN Doses of RhIg Required 01/16/22 01/16/22 04:06 04:06 WBC RBC Hgb 9.4 L Hct 28.3 L MCV MCH MCHC RDW Plt Count MPV Immature Gran % (Auto) Neut % (Auto) Lymph % (Auto) [place] % (Auto) Eos % (Auto) Baso % (Auto) Lymph # (Auto) [place] # (Auto) Eos # (Auto) Baso # (Auto) Abs Immat Gran (auto) Absolute Neuts (auto) Absolute Nucleated RBC Nucleated RBC % Sodium Potassium Chloride Carbon Dioxide Anion Gap BUN Creatinine Estim Creat Clear Calc Estimated GFR Glucose POC Capillary Glucose Calcium Total Bilirubin AST ALT Alkaline Phosphatase Total Protein Albumin RPR Blood Type B Negative Antibody Screen TNP Screen Negative Baby's Blood Type O pos Baby's SIOBHAN Positive Doses of RhIg Required 1 OB - PN A/P Plan day: 1 Plan: routine care Time Spent With Patient Time: Total time spent is greater than 50% in coordination of care (as documented) at patient's floor/unit and/or counseling patient: Review of Systems Review of Systems: All systems reviewed & are unremarkable except as noted in HPI and below Exam Const: General: cooperative, healthy appearing and comfortable
--- NOTE | 2022-01-16 10:28 | WPDANLDPN2 ---
Anes-Prog Note L&D Date/Time: 01/16/22 10:28 Comfortable throughout: labor and delivery Neuraxial method: epidural Epidural/Spinal procedure site: clean & non-tender Neuro status: Neuro function grossly intact. Cardiovascular status: normal Respiratory status: normal Airway patency: baseline Mental status: baseline Post-Op hydration status: normal Vital Signs: Last Vital Signs Temp 36.8 C 01/16/22 07:45 Pulse 92 01/16/22 07:45 Resp 18 01/16/22 07:45 BP 141/92 H 01/16/22 07:45 Pulse Ox 100 01/16/22 07:45 O2 Del Method Room Air 01/13/22 21:32 Pain score (VAS): 03/05 I/O: Intake & Output 01/15/22 01/16/22 01/16/22 23:59 07:59 15:59 Intake Total 960 360 Output Total 1320 Balance 960 -960 Post-procedural complaints: none Patient feedback: Patient satisfied with anesthetic care.
[2022-01-16] MEDS: ALBUTEROL SULFATE NEB 2.5 MG/3 ML INH (11:00)
[2022-01-16] MEDS: TETANUS,DIPHTHERIA,AC PERTUSSIS ADULT (0.5 ML) BOOSTRIX IM (12:59)
[2022-01-16] MEDS: ACETAMINOPHEN 325 MG TABLET 650 MG PO ×2 (13:01→19:36)
[2022-01-16] MEDS: DOCUSATE SODIUM 100 MG CAPSULE PO ×2 (13:02→17:24)
[2022-01-16] MEDS: IBUPROFEN 600 MG TABLET PO ×2 (13:02→19:36)
[2022-01-16] MEDS: POLYSACCHARIDE IRON COMPLEX 150 MG CAPSULE PO ×2 (13:03→17:23)
[2022-01-16] MEDS: LANOLIN (LANSINOH) 7.5 GM CREAM 1 APPLIC TOPICAL (13:03)
[2022-01-16] MEDS: valACYclovir HCL 500 MG TABLET PO ×2 (13:03→21:22)
[2022-01-16] MEDS: MULTIVIT/MIN/PREN/FOL AC/IRON TABLET 1 TAB PO (13:03)
[2022-01-16] MEDS: RHO(D) IMMUNE GLOBULIN 300 MCG/2 ML SYRINGE IM (14:56)
[2022-01-17] VITALS (10 sets, daily range): BP systolic 130–148; BP diastolic 79–93; PULSE 72–98; RESP 18; TEMP 36.6–37.2; O2SAT 98–100
[2022-01-17] MEDS: IBUPROFEN 600 MG TABLET PO ×3 (04:58→21:15)
--- NOTE | 2022-01-17 08:00 | PC.NURSE ---
PT introductions made and plan of care discussed per post , pain management, breast bottle feeding, pumping, daily care activities and pending discharge to home. PT and spouse both recipients of such instructions and no barriers to learning identified at this time. PT received such instructions this shift per one to one discussion , mom baby care guide and demonstrations. PT verbalized understanding of such care.
--- NOTE | 2022-01-17 09:01 | PM.OBPNVD ---
OB - PN: Subj Subjective Date/time seen: 01/17/22 09:01 Patient comments: no complaints and pain well controlled baby status: doing well [place] feeding status: breast and bottle feeding Narrative: baby in level 2 on D10 OB - PN: Obj Data Labs CBC & Chem 7: 01/16/22 04:06 01/15/22 06:52 Labs: Laboratory Results - last 24 hr 01/16/22 04:06 Blood Type B Negative Antibody Screen TNP Screen Negative Baby's Blood Type O pos Baby's SIOBHAN Positive Doses of RhIg Required 1 OB - PN A/P Plan day: 2 Plan: routine care and discharge home Time Spent With Patient Time: Total time spent is greater than 50% in coordination of care (as documented) at patient's floor/unit and/or counseling patient: Time with patient: less than 15 minutes Exam Narrative: NAD abdomen soft, nontender, fundus firm below the umbilicus Extremities nontender, 1+ edema
--- NOTE | 2022-01-17 09:05 | P.DS_ITS ---
DS: Admitting Diagnosis Discharge Date 01/17/22 Admitting Diagnosis febrile, IUP 36.6, chronic HTN, GDM DS: Discharge Diagnosis Discharge Diagnosis (1) Gestational diabetes: Code(s): O24.419 - Gestational diabetes mellitus in , unspecified control Status: Acute (2) Gestational hypertension: Code(s): O13.9 - Gestational [-induced] hypertension without significant proteinuria, unspecified trimester Status: Acute OB - DS: Summary Hospital Course Hospital Course: Kelsey was admitted one day prior to her scheduled induction with fever and tachycardia. She was tested and negative for influenza, covid, and RSV. status improved with IV hydration. She remained inpatient until her induction for hypertension was started at 37w. She proceeded to have an uncom plicated vaginal delivery and course. OB Procedures : NST and Ultrasound OB Procedures Intrapartum: Spontaneous Vag Delivery OB Procedures: : None Peripartum Data Infant Delivery Method: Natural Vaginal complications: none Status at Discharge Functional status at discharge: independent ambulation Time Spent with Patient Time attestation: Total time spent providing and/or coordinating discharge services: Exam Narrative: NAD abdomen soft, appropriately tender Ext non tender, 1+ edema DS: Data Data Completed and Pending Labs on day of discharge: Labs from last 24 hours 01/16/22 04:06 Blood Type B Negative Antibody Screen TNP Screen Negative Baby's Blood Type O pos Baby's SIOBHAN Positive Doses of RhIg Required 1 Discharge Plan Discharge Attending physician on discharge: Deja Unger Discharging Clinician: Deja Unger Anticipated Discharge Date/Time: 01/17/22 09:03 Patient Disposition: Home, Self-Care Activity: pelvic rest Diet: regular Patient Instructions: Antibiotic Form Stand Alone Forms: General Discharge Information Follow-up/Referrals: Fabricio Santos MD [Physician] - 1 Week Discharge Medications: Continued valacyclovir [Valtrex] 500 mg Tablet 500 mg PO DAILY cholecalciferol (vitamin D3) [Vitamin D3] 50 mcg (2,000 unit) Capsule 150 mcg PO DAILY ferrous sulfate 143 mg (45 mg iron) Tablet Extended Release 143 mg PO DAILY Gummies 400 mcg-35 mg- 25 mg-5 mg Tablet,Chewable 2 tablet PO ONCE cyclobenzaprine 5 mg Tablet 5 mg PO HS PRN (Reason: Muscle Pain) Discontinued Novolin N NPH U-100 Insulin 100 unit/mL Suspension 14 unit SUBCUT HS Date of admission: 01/14/22 09:33 Primary Care Provider: UNKNOWN,DOCTOR Admitting Provider: Fabricio Santos Attending physician on admission: Fabricio Santos Condition: Stable
[2022-01-17] MEDS: DOCUSATE SODIUM 100 MG CAPSULE PO ×2 (10:09→17:59)
[2022-01-17] MEDS: MULTIVIT/MIN/PREN/FOL AC/IRON TABLET 1 TAB PO (10:09)
[2022-01-17] MEDS: ACETAMINOPHEN 325 MG TABLET 650 MG PO ×2 (10:09→17:58)
[2022-01-17] MEDS: valACYclovir HCL 500 MG TABLET PO ×2 (10:10→20:02)
[2022-01-17] MEDS: POLYSACCHARIDE IRON COMPLEX 150 MG CAPSULE PO ×2 (10:10→17:59)
[2022-01-17] MEDS: ALBUTEROL SULFATE NEB 2.5 MG/3 ML INH INHALATION ×2 (10:33→17:30)
[2022-01-17] MEDS: WITCH HAZEL 40 PADS 1 PAD TOPICAL (12:09)
[2022-01-17] MEDS: MEASLES,MUMPS,RUBELLA VACCINE 0.5 ML VIAL SUB-Q (20:03)
[2022-01-21 10:33] VITALS: BP 144/89; PULSE 78; RESP 20; TEMP 36.6; O2SAT 100
== END 2022-01-17 23:35 | disposition home or self-care (01) | DRG 806 ==
LOC: ANHLDR 01-15 10:34 → ANHOB2 01-17 09:05 → ANHLDR 01-18 10:17 → ANHOB2 01-18 10:17
PROVIDERS: Advanced Practice Midwife; Admitting Provider Obstetrics & Gynecology; Visit Provider Obstetrics & Gynecology
DX: O99.52 Diseases of the respiratory system complicating childbirth (principal); O98.32 Other infections with a predominantly sexual mode of transmission complicating childbirth; Z37.0 Single live birth; O36.8330 Maternal care for abnormalities of the fetal heart rate or rhythm, third trimester, not applicable or unspecified; Z3A.37 37 weeks gestation of pregnancy; O13.4 Gestational [pregnancy-induced] hypertension without significant proteinuria, complicating childbirth; A60.09 Herpesviral infection of other urogenital tract; O70.0 First degree perineal laceration during delivery; O24.429 Gestational diabetes mellitus in childbirth, unspecified control; J06.9 Acute upper respiratory infection, unspecified; Z20.822 Contact with and (suspected) exposure to COVID-19; O36.63X0 Maternal care for excessive fetal growth, third trimester, not applicable or unspecified
CPT/HCPCS: 36415; 80053; 81001; 82948; 85014; 85018; 85025; 85461; 86592; 86850; 86880; 86900; 86901; 86902; 87637; 90384; 90710; 90715; 94640; A9270; J0131; J1815; J2590; J2790; J2795; J3010; J7120

== ENCOUNTER 2023-05-01 17:15 | Outpatient (CLI) | payer BC, SELFPAY ==
[2023-05-01 18:19] LABS: Beta HCG Quantitative 4.45 mIU/ML
== END 2023-05-01 17:16 | disposition home or self-care (01) ==
LOC: ANHLAB 17:19
PROVIDERS: Visit Provider Obstetrics & Gynecology
DX: O20.0 Threatened abortion (principal); Z3A.00 Weeks of gestation of pregnancy not specified
CPT/HCPCS: 36415; 84702

== ENCOUNTER 2024-06-15 08:20 | Emergency (ER) | payer BC, SELFPAY ==
--- NOTE | ~2024-06-15 | CT_ITS ---
CTA brain carotid Ordering provider: Faraz Leblanc MD History: . R arm/Leg/torso parasthesias . Comparison: None. Technique: CT angiogram head and neck was performed following timed intravenous injection of contrast . Thin slice axial images and reformatted coronal images were obtained. Three dimensional reformatted images of the brain were also obtained using a [employer] workstation. Radiation reduction technique ut ilized. The dose-length product was 1654.03 MGy-cm. 100 mL Omnipaque 350 was given IV. 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 Thrombosis shaun ot be excluded although this likely --ANTERIOR AND MIDDLE CEREBRAL ARTERIES AND BRANCHES: Normal caliber and contour. --INTERNAL CAROTID ARTERIES: Normal caliber and contour. --BASILAR ARTERY AND BRANCHES: Normal caliber and contour. No atheromatous disease. --POSTERIOR CEREBRAL ARTERIES: Normal caliber and contour --POSTERIOR COMMUNICATING ARTERIES: The left is demonstrated. The right is not visualized which is pr obably related to congenital absence or small size. --ANEURYSM: None visualized. --BRAIN: Normal for patient's age. --BONES AND SUPERFICIAL SOFT TISSUES: Normal. --PARANASAL SINUSES AND MASTOIDS: Normal. NECK: --RIGHT CERVICAL CAROTID SYSTEM: Normal caliber and contour. Percent stenosis per NASCET criteria is 0%. No carotid dissection. Otherwise, no significant atheromatous disease or stenosis of the cervica l carotid system. --LEFT CERVICAL CAROTID SYSTEM: Normal caliber and contour. Percent stenosis per NASCET criteria is 0%. No carotid dissection. Otherwise, no significant atheromatous disease or stenosis of the cervical carotid system. --VERTEBRAL ARTERIES: Normal caliber and contour. --VISUALIZED AORTIC ARCH AND BRANCHING VESSELS: Normal caliber and contour. No significant atheromato us disease. --SOFT TISSUES: Parapharyngeal lymph nodes are noted with the largest measures 1.1 cm on the left joshua e and on 1 0.2 cm on the right side. --CERVICAL SPINE: Normal. IMPRESSION: 1. Normal CTA head and neck. Percent stenosis per NASCET criteria is 0%. Reviewed, dictated and finalized at location A.
--- NOTE | ~2024-06-15 | XR_ITS ---
XR chest 1V Ordering provider: Faraz Leblanc MD History: 28 years Female with . numbness . Comparison: None. FINDINGS: MEDIASTINUM: The cardiac silhouette is not enlarged. LUNGS: No infiltrates, effusions or pneumothorax. OTHER: No free air under the diaphragm. IMPRESSION: No acute cardiopulmonary pathology Reviewed, dictated and finalized at location A.
[2024-06-15 08:23] VITALS: O2SAT 100
[2024-06-15 08:26] VITALS: BP 139/84; PULSE 88; RESP 16; TEMP 36.6; O2SAT 100
--- OUTSIDE RECORDS SUMMARY | 2024-06-15 08:32 | XMS_ITS | Clinical Summary ---
Author Organization [facility] Address Count includes the [facility] [place] [address] Care Team Providers Care Link Trainer Operator Name Role Phone None, Provider MD Primary Care Provider Unavaila ble Allergies Active Allergy Reactions Criticality Noted Date Comments [place] GI Upset 03/17/2018 Banana Unknown 04/20/2015 Tongue swells Bee Venom Unknown 04/20/2015 Effects breathing Grass Unknown 04/20/2015 rash Honey Unknown 04/20/2015 Swollen tongue Kiwi Extract Rash Low 01/18/2022 Latex Unknown 04/20/2015 Itch and swell, rash Sesame Oil Unknown 04/20/2015 Swollen skin, reddness , seeds hurt intestines. Medications fexofenadine (ISRA ALLERGY) 180 MG tablet Active VESTURA 3-0.02 MG tablet Take 1 tablet by mouth daily. 11/10/2023 Active sertraline (ZOLOFT) 100 MG tablet Take 1.5 tablets (150 mg total) by mouth daily. Active albuterol sulfate HFA 108 (90 Base) MCG/ACT inhaler Inhale 2 puffs into the lungs every 4 (four) hours as needed for Wheezing. 18 g 12/08/2023 Active Active Problems Problem Noted Date Diagnosed Date Allergic reaction 01/18/2022 Oral contraceptive use 11/16/2019 Hypoglycemia 11/16/2019 Obesity (BMI 30.0-34.9) 11/16/2019 Family history of type 2 diabetes mellitus in fa ther 11/16/2019 Tobacco abuse 03/17/2018 Immunizations Immunization Administration Dates Next Due Influenza Adult (Generic) 11/13/2017 Family History Medical History Relation Comments Diabetes Father Hypertension Father COPD Mother Hypertension Mother Stroke Mother Relation Status Comments Father Alive Mother Alive Social History Tobacco Use Types Packs/Day Years Used Date Smoking Tobacco: Former Cigarettes Q uit: 10/16/2019 Smokeless Tobacco: Never Tobacco Cessation:Counseling Given: Not Answered Alcohol Use Standard Drinks/Week Comments Yes 0 (1 standard drink = 0.6 oz pur e alcohol) occassionally AUDIT-C Answer Date Recorded Frequency of Alcohol Consumption Monthly or less 03/17/2018 Average Number of Drinks Not on file 019 Frequency of Binge Drinking Not on file 02/25 Comments No Sex and Gender Information Value Date Recorded Sex Assigned at Not on file Legal Sex Female 7:51 AM CDT Gender Identity Not on file Sexual Orientation Not on file Last Filed Vital Signs Vital Sign Reading Time Taken Comments Blood Pressure 139/84 12/08/2023 2:57 PM CDT Pulse 84 12/08/2023 2:57 PM CDT Temperature 36.4 C (97.5 F) 12/08/2023 2:57 PM CDT Respiratory Rate 17 12/08/2023 2:57 PM CDT Oxygen Saturation 99% 12/08/2023 2:57 PM CDT Inhaled Oxygen Concentration - - Weight 104.3 kg (230 lb) 12/08/2023 2:57 PM CDT Height 165.1 cm (5' 5 ) 12/08/2023 2:57 PM CDT Body Mass Index 38.27 12/08/2023 2:57 PM CDT Plan of Treatment Health Maintenance Due Date Last Done Comments Annual Physical 1996 Hepatitis C 12/25/2011 DTaP, Tdap and Td Vaccines (5 - Td or Tdap) 08/09/2018 08/09/2008, 09/28/1999, 08/02/1995, Additional history exists COVID-19 Vaccine ( season) 2023 Cervical Cancer Screening Pap with HPV Testing (Age 30 to 64) Every 5 Years 12/25/2023 09/11/2023 Cervical Cancer Screening Pap Smear (Age 30 to 64) Every 3 Years 09/10/2026 09/11/2023 Cervical Cancer Screening with HPV 09/10/2026 Meningococcal Vaccine Aged Out 07/24/2012 No osman alexys eligible based on patient's age to complete this topic Hepatitis B Vaccines Completed 12/26/2015, 06/06/1994, 01/28/1994, Additional history exists HPV Vaccines Aged Out No longer eligi ble based on patient's age to complete this topic Meningococcal B Vaccine Aged Out No l onger eligible based on patient's age to complete this topic Pneumococcal Vaccine: Pediatrics (0 to 5 Years) and At-Risk Patients (6 to 49 Years) Aged Out No longer eligible based on patient's age to complete this topic RSV Immunizations Under 20 Months Aged Out No longer eligible based on patient's age to complete this topic Additional Health Concerns Infection Onset Date Last Indicated Influenza - Seasonal 01/18/2022 01/18/2022 Insurance Advance Directives * Full Code (Latest Code Status on File) Date Activated Date Inactivated Comments 01/18/2022 8:42 PM 01/19/2022 1:36 AM Care Teams Link Trainer Operator Relationship Specialty Start Date End Date None, Provider, MD PCP - General UNKNOWN PHYSICIAN SPECIALTY 01/18/22
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
--- NOTE | 2024-06-15 08:35 | ECG_ITS ---
Test Date: 2024-06-15 08:38:12 Measurements Intervals [place] Rate: 87 P: 26 PA: 142 QRS: 21 QRSD: 93 T: 6 QT: 349 QTc: 420 Interpretive Statements SINUS RHYTHM BASELINE ARTIFACT- I, III, AVR, AVL, AVF, V1-V3 NORMAL ECG No previous ECG available for comparison Electronically Signed On 06-15-2024 08:43:55 CDT by Pedro Allen D.O.
[2024-06-15 08:40] LABS: BEDSIDEPREGUCG Negative (Negative)
[2024-06-15 08:42] LABS: Glucose Point of Care 83 mg/dl (65-105)
[2024-06-15 08:44] LABS: Basophils Absolute Auto 0.1 K/mm3 (0.0-0.1); Basophils Percent Auto 0.7 % (0.2-1.2); Eosinophils Absolute Auto 0.2 K/mm3 (0-0.3); Eosinophils Percent Auto 2.7 % (0-4.4); Hematocrit 43.3 % (37.0-47.0); Hemoglobin 14.3 g/dL (12.0-15.0); Immature Granulocyte Absolute 0.02 K/mm3 (0.00-0.031); Immature Granulocyte Percent A 0.3 % (0-0.5); Lymphocytes Absolute Auto 2.37 K/mm3 (0.9-3.2); Lymphocytes Percent Auto 31.5 % (18.3-44.2); Mean Corpuscular Hemoglobin 28.8 pg (26-34); Mean Corpuscular Volume 87.1 fl (80-100); Mean Platelet Volume 9.7 fl (7.4-10.4); Monocytes Absolute Auto 0.5 K/mm3 (0.1-0.6); Monocytes Percent Auto 6.1 % (2.6-8.5); Neutrophils Absolute Auto 4.4 K/mm3 (1.3-6.7); Neutrophils Percent Auto 58.7 % (45.5-73.1); Platelet Count Result 324 k/mm3 (150-375); Red Blood Count 4.97 M/mm3 (4.2-5.4); Red Cell Distribution Width 13.2 % (11.5-14.5); White Blood Count 7.5 K/mm3 (4.5-10.0)
[2024-06-15 09:01] LABS: Alanine Aminotransferase 23 U/L (6-35); Albumin Level 4.7 g/dL (3.5-5.1); Alkaline Phosphatase 74 U/L (38-126); Anion Gap 15 mmol/L (4-12); Aspartate Amino Transferase 25 U/L (14-36); Bilirubin,Total 0.4 mg/dL (0.2-1.3); Blood Urea Nitrogen 17 mg/dL (7-17); Calcium 9.3 mg/dL (8.4-10.2); Carbon Dioxide 18 mmol/L (22-30); Chloride 106 mmol/L (98-107); Estimated CRCL calculation 103 ml/min; Estimated Glomerular Filt Rate > 60; Glucose 86 mg/dL (65-110); Potassium 4.1 mmol/L (3.4-5.0); Sodium 139 mmol/L (137-145)
[2024-06-15 09:03] LABS: Prothrombin Time 13.4 Seconds (11.1-14.7)
[2024-06-15 09:04] LABS: Partial Thromboplastin Time 24.5 Seconds (22.3-36.8)
[2024-06-15 09:13] LABS: Troponin I < 0.012 ng/mL (0.000-0.034)
[2024-06-15 09:14] VITALS: BP 120/69; PULSE 82; RESP 18; O2SAT 100
--- OUTSIDE RECORDS SUMMARY | 2024-06-15 09:24 | XMS_ITS | Clinical Summary ---
Author Organization [facility] Address [facility] [place] [address] Care Team Providers Care Radio/Tv Technician Name Role Phone None, Provider MD Primary [...] 8:42 PM 01/19/2022 1:36 AM Care Teams Radio/Tv Technician Relationship Specialty Start Date End Date None, Provider, MD PCP - General UNKNOWN PHYSICIAN SPECIALTY 01/18/22
[2024-06-15] MEDS: KETOROLAC 15 MG/ML VIAL (*BKC) IV PUSH (11:24)
[2024-06-15] MEDS: ACETAMINOPHEN 500 MG TABLET 1000 MG PO (11:25)
[2024-06-15] MEDS: dexAMETHasone SOD PHOS INJ 10 MG/ML 1 ML VIAL IV PUSH (11:25)
[2024-06-15] MEDS: HYDROmorphone HCL INJ (*CRX) 2 MG/ML VIAL 0.5 MG IV PUSH (11:25)
[2024-06-15 11:38] VITALS: BP 125/65; PULSE 90; RESP 15; O2SAT 99
--- NOTE | 2024-06-15 12:14 | ED_ITS ---
HPI - General Adult General Chief complaint: Neuro Symptoms/Deficit Stated complaint: numbness to right arm and leg since Friday Time Seen by Provider: 06/15/24 08:23 History of Present Illness HPI narrative: This is a 28-year-old female presenting with right leg pain and numbness. Starting 3 days ago patient developed pain started in her right lower back and radiated down the outside of her leg. Is created a burning and numbing sensation. She has never had sciatica before. She has had symptoms like this in the past but not to this severity. She became more concerned because then she developed more in her right hand. The pain right hand has similar and feeling and is in an ulnar nerve distribution. She has also had symptoms like this in the past but have resolved without intervention. She has not taken anything for pain control. Denies any visual changes, confusion, loss of consciousness, weakness, slurred speech or facial droop. No difficulty urinating or painful vision loss. Related Data Home Medications ?Medication ?Instructions ?Recorded ?Confirmed ?Last Taken ?Type PNV 153-FA 400 mcg-om3 35 mg-dha 2 tablet PO ONCE 01/12/22 01/14/22 01/13/22 History 25 mg-epa 5 mg-fish oil chew tablet ( Gummies) cholecalciferol (vitamin D3) 50 150 mcg PO DAILY 01/12/22 01/14/22 01/13/22 History mcg (2,000 unit) capsule (Vitamin D3) cyclobenzaprine 5 mg tablet 5 mg PO HS PRN Muscle Pain 01/12/22 01/14/22 01/13/22 History ferrous sulfate 143 mg (45 mg 143 mg PO DAILY 01/12/22 01/14/22 01/13/22 History iron) tablet,extended release valacyclovir 500 mg tablet 500 mg PO DAILY 01/12/22 01/14/22 01/13/22 History (Valtrex) Allergies Allergy/AdvReac Type Severity Reaction Status Date / Time almond Allergy Swelling Verified 01/14/22 10:33 banana Allergy Swelling Verified 01/14/22 10:33 of Lip/Tongue/Throat bee venom protein (honey bee) Allergy Swelling Verified 01/14/22 10:33 beeswax Allergy Itching Verified 01/14/22 10:33 honey Allergy Difficulty Verified 01/14/22 10:33 Breathing kiwi Allergy Swelling Verified 01/14/22 10:33 of Lip/Tongue/Throat latex Allergy Itching Verified 01/14/22 10:33 sesame oil Allergy Swelling Verified 01/14/22 10:33 sesame seed Allergy Gastrointestinal Verified 01/14/22 10:33 Upset PMFSH Past Medical History Medical History Gestational diabetes Scoliosis Anxiety and depression Gestational hypertension Morbid obesity No significant medical problems Surgical History Surgical History No pertinent past surgical history Family History Family History Grandparent Family history of heart disease in male family member before age 55 Diabetes mellitus Hypertension Lung cancer Alcohol abuse Father Hypertension Sibling Ovarian cancer PCOS (polycystic ovarian syndrome) Bipolar 1 disorder Heart murmur Mother Bipolar 1 disorder Social History Social History Smoking status: Never smoker Second hand tobacco smoke exposure: No Alcohol intake: never Substance use: former Lack of Transportation: No Lack of Food: Never True Current Housing: I Have Housing Concerned About Future Housing: No Difficulty Paying Gas/Electric Bills: No Difficulty Paying for Meds: No Currently Unemployed: No Education: Decline to Answer Difficulty w/ Childcare or Family Care: No Spiritual care concerns: No Exam 2 Narrative: APPEARANCE: No apparent distress. Head: atraumatic. EYES: EOMI, NOSE: Atraumatic NECK: Trachea midline RESPIRATORY: No increased rate of breathing CARDIOVASCULAR: RRR, ABDOMINAL: Non-distended MUSCULOSKELETAl: No obvious deformities NEURO: Alert. Cranial nerves 2-12 grossly intact. Sensation light touch, motor function cerebellar function intact for 4 extremities. Gait exam was normal. Straight leg negative bilaterally SKIN:: Warm, dry. Normal color PSYCHIATRIC: Normal affect Course Vital Signs Vital signs: Vital Signs Pulse Oximetry 100 06/15/24 08:23 Temperature 97.8 F 06/15/24 08:26 Pulse Rate 90 06/15/24 11:38 Respiratory Rate 15 06/15/24 11:38 Blood Pressure 125/65 06/15/24 11:38 Pulse Oximetry 99 06/15/24 11:38 Oxygen Delivery Room Air 06/15/24 08:26 Medical Decision Making MDM Narrative Medical decision making narrative: -Course: 28-year-old female presenting with leg and arm pain. Patient's presentation is most consistent L5 sciatica. Arm pain most consistent with cervical C8. Neurologic exam is normal. There is no weakness. CT brain was unremarkable. Patient received pain medication with complete resolution of her symptoms. She is comfortable following up with a neurologist on an outpatient basis. Given return precautions. -DDX includes but is not limited to: Peripheral neuropathy, CVA, MS Vital Signs Vital Signs: Vital Signs Pulse Oximetry 100 06/15/24 08:23 Temperature 97.8 F 06/15/24 08:26 Pulse Rate 90 06/15/24 11:38 Respiratory Rate 15 06/15/24 11:38 Blood Pressure 125/65 06/15/24 11:38 Pulse Oximetry 99 06/15/24 11:38 Oxygen Delivery Room Air 06/15/24 08:26 Lab Data 06/15/24 08:39 06/15/24 08:39 Labs: Lab Results 06/15/24 06/15/24 Range/Units 08:38 08:39 WBC 7.5 (4.5-10.0) K/mm3 RBC 4.97 (4.2-5.4) M/mm3 Hgb 14.3 D (12.0-15.0) g/dL Hct 43.3 (37.0-47.0) % MCV 87.1 (80-100) fl MCH 28.8 (26-34) pg MCHC 33.0 (32-36) g/dl RDW 13.2 (11.5-14.5) % Plt Count 324 D (150-375) k/mm3 MPV 9.7 (7.4-10.4) fl Immature Gran % (Auto) 0.3 (0-0.5) % Neut % (Auto) 58.7 (45.5-73.1) % Lymph % (Auto) 31.5 (18.3-44.2) % [place] % (Auto) 6.1 (2.6-8.5) % Eos % (Auto) 2.7 (0-4.4) % Baso % (Auto) 0.7 (0.2-1.2) % Lymph # (Auto) 2.37 (0.9-3.2) K/mm3 [place] # (Auto) 0.5 (0.1-0.6) K/mm3 Eos # (Auto) 0.2 (0-0.3) K/mm3 Baso # (Auto) 0.1 (0.0-0.1) K/mm3 Abs Immat Gran (auto) 0.02 (0.00-0.031) K/mm3 Absolute Neuts (auto) 4.4 (1.3-6.7) K/mm3 Absolute Nucleated RBC 0.000 (0.0-0.012) K/mm3 Nucleated RBC % 0.0 (0.0-0.2) % PT 13.4 (11.1-14.7) Seconds INR 1.0 APTT 24.5 (22.3-36.8) Seconds Sodium 139 (137-145) mmol/L Potassium 4.1 (3.4-5.0) mmol/L Chloride 106 (98-107) mmol/L Carbon Dioxide 18 L (22-30) mmol/L Anion Gap 15 H (4-12) mmol/L BUN 17 D (7-17) mg/dL Creatinine 0.86 (0.7-1.0) mg/dL Estim Creat Clear Calc 103 ml/min Estimated GFR > 60 (59 - ) Glucose 86 (65-110) mg/dL POC Capillary Glucose 83 (65-105) mg/dl Calcium 9.3 (8.4-10.2) mg/dL Total Bilirubin 0.4 (0.2-1.3) mg/dL AST 25 (14-36) U/L ALT 23 (6-35) U/L Alkaline Phosphatase 74 (38-126) U/L Troponin I < 0.012 (0.000-0.034) ng/mL Total Protein 8.0 (6.3-8.2) g/dL Albumin 4.7 (3.5-5.1) g/dL POC Urine HCG, Qual Negative (Negative) Discharge Plan Discharge Clinical Impression: Sciatica, Cervical radiculopathy at C8 Patient Disposition: Home Condition: Stable Instructions: Antibiotic Form, Lumbar Radiculopathy (ED) Additional Instructions: You were seen in the emergency department for arm and leg pain. I believe that you have a pinched nerve that is causing your symptoms. Please use Motrin Tylenol and Robaxin for pain. Please follow-up with the neurologist listed below for further management. If you develop weakness to any extremity, confusion loss of consciousness or any new symptoms please return to ED immediately for re-evaluation. Patient Language: Kazakh Prescriptions: New acetaminophen 500 mg tablet 1,000 mg PO TID PRN (Reason: sunny) 7 Days Qty: 42 0RF ibuprofen 800 mg tablet 800 mg PO TID PRN (Reason: pain) 7 Days Qty: 21 0RF methocarbamol 750 mg tablet 1,500 mg PO TID Qty: 42 0RF No Action valacyclovir [Valtrex] 500 mg Tablet 500 mg PO DAILY cholecalciferol (vitamin D3) [Vitamin D3] 50 mcg (2,000 unit) Capsule 150 mcg PO DAILY ferrous sulfate 143 mg (45 mg iron) Tablet Extended Release 143 mg PO DAILY Gummies 400 mcg-35 mg- 25 mg-5 mg Tablet,Chewable 2 tablet PO ONCE cyclobenzaprine 5 mg Tablet 5 mg PO HS PRN (Reason: Muscle Pain) Follow-up/Referrals: Max Rao MD [Physician] - 1 Week (Peripheral neuropathy) UNKNOWN,DOCTOR [Primary Care Provider] -
== END 2024-06-15 13:33 | disposition home or self-care (01) ==
PROVIDERS: Emergency Provider Emergency Medicine
DX: M54.41 Lumbago with sciatica, right side (principal); M54.12 Radiculopathy, cervical region; F41.9 Anxiety disorder, unspecified; F32.A Depression, unspecified
CPT/HCPCS: 36415; 70496; 70498; 71045; 80053; 81025; 82948; 84484; 85025; 85610; 85730; 93005; 96374; 96375; 99284; A9270; J1100; J1171; J1885; Q9967

== ENCOUNTER 2024-06-18 11:10 | Outpatient (CLI) | payer BC, SELFPAY ==
--- NOTE | ~2024-06-18 | XR_ITS ---
Cervical Spine: AP, lateral, open-mouth views Clinical History: Pain Findings: There is mild reversal normal cervical lordosis. The vertebral bodies and posterior elemen ts appear intact. The intervertebral disc spaces are well maintained. Pre-vertebral soft tissues are unremarkable. Impression: Mild reversal of the normal cervical lordosis. Reviewed, dictated and finalized at [facility]. Impression: Mild reversal of the normal cervical lordosis.
--- NOTE | ~2024-06-18 | XR_ITS ---
Lumbosacral Spine: AP and lateral views Clinical History: Pain Findings: The normal lordotic curve is maintained. The vertebral bodies and posterior elements are i ntact. The intervertebral disc spaces are preserved. The sacroiliac joints are normally outlined. Impression: No significant abnormality. Reviewed, dictated and finalized at [facility]. Impression: No significant abnormality.
--- NOTE | ~2024-06-18 | XR_ITS ---
Thoracic spine: Clinical Indication: Back pain, numbness AP and lateral views were performed. No fracture is seen. There is normal alignment of the vertebrae. The intervertebral disc spaces appe ar normal. Paravertebral soft tissues appear normal. Impression: No significant abnormalities noted. Reviewed, dictated and finalized at [facility]. Impression: No significant abnormalities noted.
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
--- OUTSIDE RECORDS SUMMARY | 2024-06-18 11:33 | XMS_ITS | Patient Health Record ---
Author Organization [facility] [employer] Address [address] [place] [address] Care Team Providers Care Animal Nutrition Consultant Name Role Phone Patricia Gacria Unavailable [phone] Emerita Michele Unavailable [phone] Migration, Provider Unavailable Unavailable Allergies Allergen (clinical [...] 2 Fatigue, unspecified type (R53.83) Referral Organization [facility] Referring Provider First Name Thensuman Referring Provider [...] (28) 3 MG-0.02 MG TABLET *Reorder from [employer] for eRx and Interaction Alerts* 07/04/2023 Active [...] Severe recurrent major depression without psychotic features (16123122) Major depressive disorder, recurrent severe without psychotic features (F33.2) Active confirmed Problem Post-traumatic stress disorder (59472804) Post-traumatic stress disorder, unspecified (F43.10) Active confirmed Problem Primary insomnia (5781966) Primary insomnia (F51.01) Active confirmed Problem Asperger's syndrome (76499626) Asperger's syndrome (F84.5) Active confirmed Problem 29796360 Autism spectrum disorder (F84.0) Active confirmed Problem 25057988 Fatigue, unspecified type (R53.83) Active confirmed Problem 21701028 Hypersomnia (G47.10) Active confirmed Vital Signs Heart Rate 105 /min 05/28/2024 Blood pressure diastolic 88 mm Hg 05/28/2024 Height-cm 165.10 cm 05/28/2024 Weight-kg 110.22 kg 05/28/2024 Height 65.00 in 05/28/2024 Blood pressure systolic 119 mm Hg 05/28/2024 Weight 243 lbs 05/28/2024 BMI 40.43 kg/m2 05/28/2024 Encounters Encounter Location Date Provider Diagnosis [facility] [address] [facility] [address] [address] 07/04/2023 Thena Leny Major depressive disorder, recurrent severe without psychotic features F33.2 ; Asperger's syndrome F84.5 and Post-traumatic stress disorder, unspecified F43.[address] [place] [address] [facility] [address] [address] 08/14/2023 Thena Leny Major depressive disorder, recurrent severe without psychotic features F33.2 ; Post-traumatic stress disorder, unspecified F43.10 ; Asperger's syndrome F84.5 ; Hypersomnia G47.10 and Fatigue, unspecified type R53.[address] [place] [address] [facility] [address] [address] 10/14/2023 Thena Leny [place] [address] [facility] [address] [address] 10/17/2023 Thena Leny Major depressive disorder, recurrent severe without psychotic features F33.2 ; Post-traumatic stress disorder, unspecified F43.10 ; Fatigue, unspecified type R53.83 ; Hypersomnia G47.10 and Autism spectrum disorder F84.0 [place] [address] [facility] [address] [address] 01/09/2024 Thena Leny [address] [address] 02/13/2024 Thena Leny Major depressive disorder, recurrent severe without psychotic features F33.2 ; Post-traumatic stress disorder, unspecified F43.10 and Autism spectrum disorder F84.0 [facility] [address] [facility] [address] [address] 05/28/2024 Patricia Radha Post-traumatic stres s disorder, unspecified F43.10 ; Primary insomnia F51.01 ; Encounter for screening for depression Z13.31 ; Major depressive disorder, recurrent severe without psychotic features F33.2 and Encounter for screening for cardiovascular disorders Z13.[address] [place] [address] [facility] [address] [address] 07/12/2023 Provider Migration [facility], [facility] [address] [place] [address] 07/13/2023 Provider Migration [facility], [facility] [address] [place] [address] 08/21/2023 [facility] [address] [place] [address] 09/02/2023 [facility] [address] [place] [address] 01/08/2024 Thena Leny [facility], [facility] [address] [place] [address] 02/13/2024 [facility] [address] [place] [address] 08/06/2023 Thena Leny Major depressive disorder, recurrent severe without psychotic features F33.2 ; Post-traumatic stress disorder, unspecified F43.10 and Asperger's syndrome F84.5 [facility] [address] [place] [address] 01/09/2024 [facility] [address] [place] [address] 05/13/2024 Patricia Radha Major depressive disorder, recurrent severe without psychotic features F33.2 [facility] [address] [place] [address] 05/13/2024 Patricia Radha Major depressive disorder, recurrent [...] WHW PRN for insomnia -referral sent to [facility] last year, encouraged to schedule [...] Name:Desi Gay lambertyoel, 11/26/2024 08:30:00 AM, [address] [facility] [address], [facility] [address], [place], [address], Insurance Providers Payer Name Payer Address Payer Phone Subscriber Number Group Number Insured Name Patient Relationship to Insured Coverage Start Date Coverage End Date [facility] [address] [place] [address] [id number] ALEXIA GOZNALES Self - patient is the insured Medical [...]
--- OUTSIDE RECORDS SUMMARY | 2024-06-18 11:34 | XMS_ITS | Clinical Summary ---
Author Organization [facility] Address [facility] [place] [address] Care Team Providers Care Printed Circuit Board Panels Developer Name Role Phone None, Provider MD Primary [...] 8:42 PM 01/19/2022 1:36 AM Care Teams Printed Circuit Board Panels Developer Relationship Specialty Start Date End Date None, Provider, MD PCP - General UNKNOWN PHYSICIAN SPECIALTY 01/18/22
== END 2024-06-18 11:11 | disposition home or self-care (01) ==
LOC: CHSIMG 11:12
PROVIDERS: PCP Family Medicine; Visit Provider Family Medicine
DX: M54.9 Dorsalgia, unspecified (principal); M43.8X2 Other specified deforming dorsopathies, cervical region
CPT/HCPCS: 72040; 72072; 72100

== ENCOUNTER 2024-06-26 07:35 | Outpatient (CLI) | payer BC, SELFPAY ==
--- NOTE | ~2024-06-26 | MR_ITS ---
EXAMINATION: MR brain/brain stem wo/w con DATE: 06/26/2024 08:28 INDICATION: Headache. Numbness to right arm and leg. TECHNIQUE: Magnetic resonance imaging (MRI) of the brain and brainstem was performed without and with 20 mL Multihance intravenous contrast. Sequences included sagittal and axial T1-weighted SE, axial d iffusion-weighted FS SE, axial T2*-weighted GRE, axial T2-weighted FLAIR, and axial T2-weighted FSE. Postcontrast axial and coronal T1-weighted SE was obtained. Apparent diffusion coefficient (ADC) maps were created. COMPARISON: Head CT and CT angiogram FINDINGS: There are no areas of restricted diffusion to suggest acute infarction. No intracranial hemorrhage or abnormal intracranial mass lesion. There are no intraparenchymal signal abnormalities seen on the ot her pulse sequences. The ventricles are symmetric and normal in size. There are no abnormal extra-axi al fluid collections. Flow voids are seen in the cerebral arteries on the T2-weighted sequences consi stent with their expected patency. Incidental 1.5 x 0.9 cm ovoid T2 hyperintense nonenhancing fossa o f Rosenmuller retention cyst with chronic remodeling of the adjacent bone evident on prior CT. Visual ized orbits and soft tissues are unremarkable. There are no areas of abnormal enhancement on the post contrast images. IMPRESSION: 1. Normal brain. Reviewed, dictated and finalized at location A. IMPRESSION: 1. Normal brain.
--- OUTSIDE RECORDS SUMMARY | 2024-06-26 15:50 | XMS_ITS | Patient Health Record ---
Author Organization [facility] [employer] Address [address] [place] [address] Care Team Providers Care Stranding Machine Operator Helper Name Role Phone Patricia Garcia Unavailable [phone] Emerita Michele Unavailable [phone] Migration, Provider Unavailable Unavailable Allergies Allergen (clinical [...] 2 Fatigue, unspecified type (R53.83) Referral Organization [facility] [employer] [facility] Referring Provider First Name Thensuman Referring [...] (28) 3 MG-0.02 MG TABLET *Reorder from [employer] for eRx and Interaction Alerts* 07/04/2023 Active [...] Severe recurrent major depression without psychotic features (28284251) Major depressive disorder, recurrent severe without psychotic features (F33.2) Active confirmed Problem Post-traumatic stress disorder (95216790) Post-traumatic stress disorder, unspecified (F43.10) Active confirmed Problem Primary insomnia (5633035) Primary insomnia (F51.01) Active confirmed Problem Asperger's syndrome (69075697) Asperger's syndrome (F84.5) Active confirmed Problem 75718317 Autism spectrum disorder (F84.0) Active confirmed Problem 38019198 Fatigue, unspecified type (R53.83) Active confirmed Problem 13071949 Hypersomnia (G47.10) Active confirmed Vital Signs Heart Rate 105 /min 05/28/2024 Blood pressure diastolic 88 mm Hg 05/28/2024 Height-cm 165.10 cm 05/28/2024 Weight-kg 110.22 kg 05/28/2024 Height 65.00 in 05/28/2024 Blood pressure systolic 119 mm Hg 05/28/2024 Weight 243 lbs 05/28/2024 BMI 40.43 kg/m2 05/28/2024 Encounters Encounter Location Date Provider Diagnosis [facility] [address] [facility] [address] [address] 07/04/2023 Thena Leny Major depressive disorder, recurrent severe without psychotic features F33.2 ; Asperger's syndrome F84.5 and Post-traumatic stress disorder, unspecified F43.10 [place] [id number] [facility] [address] [address] 08/14/2023 Thena Leny Major depressive disorder, recurrent severe without psychotic features F33.2 ; Post-traumatic stress disorder, unspecified F43.10 ; Asperger's syndrome F84.5 ; Hypersomnia G47.10 and Fatigue, unspecified type R53.83 [place] [id number] [facility] [address] [address] 10/14/2023 Thena Leny [place] [address] [facility] [address] [address] 10/17/2023 Thena Leny Major depressive disorder, recurrent severe without psychotic features F33.2 ; Post-traumatic stress disorder, unspecified F43.10 ; Fatigue, unspecified type R53.83 ; Hypersomnia G47.10 and Autism spectrum disorder F84.0 [place] [id number] [facility] [address] [address] 01/09/2024 Thena Leny [address] [address] 02/13/2024 Thena Leny Major depressive disorder, recurrent severe without psychotic features F33.2 ; Post-traumatic stress disorder, unspecified F43.10 and Autism spectrum disorder F84.0 [facility] [address] [facility] [address] [address] 05/28/2024 Patricia Radha Post-traumatic stres s disorder, unspecified F43.10 ; Primary insomnia F51.01 ; Encounter for screening for depression Z13.31 ; Major depressive disorder, recurrent severe without psychotic features F33.2 and Encounter for screening for cardiovascular disorders Z13.6 [place] [id number] [facility] [address] [address] 07/12/2023 Provider Migration [facility], [facility] [address] [place] [address] 07/13/2023 Provider Migration [facility], [facility] [address] [place] [address] 08/21[facility] [address] [place] [address] 09/02/2023 [facility] [address] [place] [address] 01/08/2024 Thena Leny [facility], [facility] [address] [place] [address] [facility] [address] [place] [address] 08/06/2023 Thena Leny Major depressive disorder, recurrent severe without psychotic features F33.2 ; Post-traumatic stress disorder, unspecified F43.10 and Asperger's syndrome F84.5 [facility] [address] [place] [address] 01/09/2024 [facility] [address] [place] [address] 05/13/2024 Patricia Radha Major depressive disorder, recurrent severe without psychotic features F33.2 [facility] [address] [place] [address] 05/13/2024 Patricia Radha Major depressive disorder, recurrent [...] WHW PRN for insomnia -referral sent to [facility] last year, encouraged to schedule [...] Name:Desi Gay lambertyoel, 11/26/2024 08:30:00 AM, [address] [facility] [address], [facility] [address], [place], [address], Insurance Providers Payer Name Payer Address Payer Phone Subscriber Number Group Number Insured Name Patient Relationship to Insured Coverage Start Date Coverage End Date [facility] [address] [place] [address] [id number] ALEXIA GONZALES Self - patient is the [...]
--- OUTSIDE RECORDS SUMMARY | 2024-06-26 15:50 | XMS_ITS | Continuity of Care Document ---
Author Organization [employer] [facility] Address [address] [place] [address] [address] [place] [address] Phone Care Team Providers [employer] Secretary Name Role Phone Yanelis DPT, Remedios Unavailable Unavailable Procedures Procedure Date PT RE-EVALUATION THERAPEUTIC EXERCISES NEUROMUSCULAR RE-ED MANUAL THERAPY THERAPEUTIC EXERCISES NEUROMUSCULAR RE-ED MANUAL THERAPY HOT/COLD PACK THERAPEUTIC EXERCISES NEUROMUSCULAR RE-ED MANUAL THERAPY THERAPEUTIC EXERCISES NEUROMUSCULAR RE-ED MANUAL THERAPY HOT/COLD PACK PT RE-EVALUATION THERAPEUTIC EXERCISES NEUROMUSCULAR RE-ED MANUAL THERAPY FUNC ACTIVITY THERAPEUTIC EXERCISES NEUROMUSCULAR RE-ED MANUAL THERAPY FUNC ACTIVITY THERAPEUTIC EXERCISES NEUROMUSCULAR RE-ED MANUAL THERAPY FUNC ACTIVITY HOT/COLD PACK THERAPEUTIC EXERCISES NEUROMUSCULAR RE-ED MANUAL THERAPY FUNC ACTIVITY THERAPEUTIC EXERCISES NEUROMUSCULAR RE-ED MANUAL THERAPY FUNC ACTIVITY PT EVALUATION THERAPEUTIC EXERCISES NEUROMUSCULAR RE-ED Advance Directives Directive Yes / No Effective Date File Name No Information Encounters Encounter Description Practice Location Reason(s) For Visit Diagnoses Date Provider Providers Copied on Encounter [address], [place], [place], [id number], tel:[phone] [place] No Information May-2 7-201 6 [place] Remedios. [address] [place] [address], [address], [place], [place], [facility], . tel: [phone] [address], [place], [place], [id number], tel:[phone] [place] No Information May-1 8-201 6 Yanelis Remedios. [address] [place] [address], [address], [place], [place], [facility], . tel: [phone] [address], [place], [place], [address], tel:[phone] [place] No Information May-1 5-201 6 Yanelis Remedios. [address] [place] [address], [address], [place], [place], [facility], [place]. tel: [phone] [place], [place] [address], [place], [place], [id number], tel:[phone] [place] No Information May-0 8-201 6 [place] Remedios. [address] [place] [address], [address], [place], [facility], [place]. tel: [phone] [address], [place], [place], [id number], [place] tel:[phone] [place] No Information Apr-0 4-201 6 Yanelis Remedios. [address] [place] [address], [address], [place], [place], [facility], . tel: [phone] [address], [place], [place], [address], [place] tel:[phone] [place] No Information Mar-3 0-201 6 [place] Remedios. [address] [place] [address], [facility], [place], [place], [facility], . tel: [phone] [place] [address], [place], [place], [id number], tel:[phone] [place] No Information Apr-2 3-201 6 Yanelis Remedios. [address] [place] [address], [facility] [address], [place], [facility], . tel:[phone], [place], [place], [id number], tel:[phone] [place] No Information 8-201 6 [place] Remedios. [address] [place] [address], [facility] [address], [place], [facility], . tel: [phone] [address], [id number], tel:[phone] [place] No Information 6-201 6 [place] Remedios. [address] [place] [address], [facility], [place], [place], [facility], . tel:[phone], [id number], tel:[phone] [place] Pain in right shoulderStiffnes s of right shoulder, not elsewhere classifiedMuscle weakness (generalized)Cer vicalgia Apr- 1-201 6 [place] Remedios. [address] [place] [address], [facility], [place], [place], [facility], . tel:[phone] Family History Family Member Type Diagnosis Age At Onset No Information Payers Payer name Insurance type Covered alliance party ID Authoriza tion(s) No Information Social History Type Description Quantity Date Captured Comments Sex Female Smoking Status No Information Chief Complaint And Reason For Visit No Information Reason For Referral Reason For Referral No Information History Of Present Illness Encounter Date Complaint History Of Prese nt Illness No Information Functional Status Date Functional Assessmen t No Information Instructions Date Instruction Additional Infor mation No Information Assessments Type Assessment Date No Information Patient Care Teams Name Effective Dates (start - stop) Status Members No Information
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
--- OUTSIDE RECORDS SUMMARY | 2024-06-26 15:51 | XMS_ITS | Clinical Summary ---
Author Organization [facility] Address [facility] [place] [address] Care Team Providers Care Car Head Liner Installer Name Role Phone None, Provider MD Primary [...] 8:42 PM 01/19/2022 1:36 AM Care Teams Car Head Liner Installer Relationship Specialty Start Date End Date None, Provider, MD PCP - General UNKNOWN PHYSICIAN SPECIALTY 01/18/22
== END 2024-06-26 07:36 | disposition home or self-care (01) ==
LOC: CHSIMG 07:38
PROVIDERS: PCP Family Medicine; Visit Provider Family Medicine
DX: R51.9 Headache, unspecified (principal)
CPT/HCPCS: 70553; A9577

== ENCOUNTER 2024-07-06 08:40 | Outpatient (RCR) | payer BC, SELFPAY ==
--- NOTE | 2024-07-06 13:10 | OPREHPOC ---
Outpatient Therapy Plan of Care This is a Multidisciplinary Plan of Care that may contain components documented by all disciplines (PT, OT, and ST.) PT Problem 1 PT Problem #1 Knowledge Deficit PT Goal 1 Goal / Goal Update independent and compliant with HEP Target Visit 5 PT Problem 2 PT Problem #2 Pain PT Goal 1 Goal / Goal Update decrease lower back pain to 2/10 or less at worst Target Visit 10 PT Problem 3 PT Problem #3 Impaired Range of Motion PT Goal 1 Goal / Goal Update arom cervical extension to 45 degrees arom lumbar mobility to 100% without increased pain Target Visit 10 PT Problem 4 PT Problem #4 Impaired Strength PT Goal 1 Goal / Goal Update 5/5 bilateral gross UE strength 5/5 bilateral gross LE strength 4-/5 or better core strength Target Visit 10 PT Problem 5 PT Problem #5 Impaired Functional Mobility PT Goal 1 Goal / Goal Update oswestry to display 30% or less functional deficits NDI to display 20% or less functional deficits patient to tolerate sitting in a desk chair for 1 hour or more at a time patient to tolerate play and care of her child without increased symptoms Target Visit 10
--- NOTE | 2024-07-06 13:10 | PTOPEVAL1 ---
Assessment and note entered by JT File, PT Evaluation Information Assessment Status Evaluation ICD-10 Condition Codes (PT) Pain in low back M54.50,Radiculopathy, lumbar region M54.16 Onset 06/12/24 Subjective Information patient reports she has pain in the lower back and travels up to the neck and then she will get weakness and tingling in the R arm in the pinky finger. she reports she also get radicular symptoms into the R LE. she reports it will go down to the ankle along the outside of the R foot and pinky toe. she reports she has increased symptoms with walking, lifting objects more than 50lbs from the floor, a gallon of milk in the R hand, and sitting up for too long. she reports she tolerates the couch for an hour and the desk chair for 30 minutes. she reports standing and bending to reach into the dryer or dress her son will cause increased symptoms almost immediately. she reports she has had a CT of the head, and xrays of the lower back. she reports she has had pain and symptoms for a long time, but reports it was significantly worse since she got an epidural during child . Reported Pain Level Pain Score 0,3: Self Report Assessment PT Clinical Summary mrs. malone is a 28 yo woman who presents to skilled PT services for evaluation and treatment of cervical and lumbar radiculopathy. she presents today with R cervical radiculopathy and R lumbar radiculopathy. she displays decreased cervical rotation active rom, decreased cervical extension, decreased lumbar rom, core weakness, and radicular symptoms into the lower leg and distal arm. continued skilled PT is indicated to improve her objective/functional deficits and progress towards a return to her prior level functional activity performance/quality of life. Plan of Care Interventions Electrical Stimulation,Gait Training,Hot Pack/Cold Pack,Manual Therapy,Mechanical Traction,Neuro Re- education,Patient/Caregiver Education,Therapeutic Activities,Therapeutic Exercise PT Services Indicated Yes Treatment Frequency and 2x weekly for 10 visits Duration These treatments will address the objective and functional deficits as defined above. The patient will be advanced safely and appropriately in order for the patient to progress towards his/her prior level of function. Additional exercises will be introduced and as well as a comprehensive home exercise program upon discharge, if needed, ?to ensure carryover of functional gains achieved in the clinic. This treatment plan has been reviewed and agreement upon by the patient.
--- NOTE | 2024-08-10 13:20 | OPREHPOC ---
Outpatient Therapy Plan of Care This is a Multidisciplinary Plan of Care that may contain components documented by all disciplines (PT, OT, and ST.) PT Problem 1 PT Problem #1 Knowledge Deficit PT Goal 1 Goal / Goal Update independent and compliant with HEP Target Visit 5 Progress Met PT Goal 2 Goal / Goal Update continue progressing PT Problem 2 PT Problem #2 Pain PT Goal 1 Goal / Goal Update decrease lower back pain to 2/10 or less at worst Target Visit 10 Progress Not Met PT Goal 2 Goal / Goal Update continue Target Visit 20 PT Problem 3 PT Problem #3 Impaired Range of Motion PT Goal 1 Goal / Goal Update arom cervical extension to 45 degrees arom lumbar mobility to 100% without increased pain Target Visit 10 Progress Not Met PT Goal 2 Goal / Goal Update continue Target Visit 20 PT Problem 4 PT Problem #4 Impaired Strength PT Goal 1 Goal / Goal Update 5/5 bilateral gross UE strength 5/5 bilateral gross LE strength 4-/5 or better core strength Target Visit 10 Progress Not Met PT Goal 2 Goal / Goal Update continue Target Visit 20 PT Problem 5 PT Problem #5 Impaired Functional Mobility PT Goal 1 Goal / Goal Update oswestry to display 30% or less functional deficits NDI to display 20% or less functional deficits patient to tolerate sitting in a desk chair for 1 hour or more at a time -not met patient to tolerate play and care of her child without increased symptoms- not met Target Visit 10 Progress Not Met PT Goal 2 Goal / Goal Update continue
--- NOTE | 2024-08-10 13:20 | PTOPREEVAL ---
Assessment and note entered by JT File, PT Evaluation Information Assessment Status Re-evaluation ICD-10 Condition Codes (PT) Pain in low back M54.50,Radiculopathy, lumbar region M54.16 Onset 06/12/24 Subjective Information pt reports that her neck and R arm feel great. Pt reports that her back and LE are hurting. Pt reports that the R LE feels weak and shaky after standing for an hour. Pt reports that she can not walk or stand longer than an hour. Pt reports that she went to the MD and has a script to get a lumbar MRI. Pt reports that she has a follow up with her primary MD next week. Pt reports that she has been struggling with stairs. She reports that she can not use her R LE to go up the stairs first because it is too weak and unstable. Pt reports that the traction made her neck feel the best it has ever felt. Pt reports that giving her child a bath and putting him in the car is still extremely difficult. Reported Pain Level Pain Score 5,0: Self Report Assessment PT Clinical Summary Ms. Harley is on her 10th skilled PT visit for lumbar pain/radiculopathy and cervical pain/ radiculopathy. She has made improvements in neck ROM, no longer has pain in her cervical spine, and she no longer has radiculopathy into the R UE. However, she still has radiculopathy down the R LE and pain in the lumbar spine. Pt has deficits in LE strength, lumbar ROM, abdominal strength, gait mechanics, and posture. She has not met most of her goals and still struggles with caring for her child. She also struggles with walking, standing and stairs. She has to schedule an MRI for her lumbar spine and visit her inspector and adjuster golf club head next week. Skilled PT is advised to continue working on pts deficits, functional decline, and quality of life. Pt would benefit from continued skilled PT to work towards her functional goals to care for her child and return to her prior level of function. Plan of Care Interventions Electrical Stimulation,Gait Training,Hot Pack/Cold Pack,Manual Therapy,Mechanical Traction,Neuro Re- education,Patient/Caregiver Education,Therapeutic Activities,Therapeutic Exercise PT Services Indicated Yes Treatment Frequency and continue POC focusing on Lumbar and LE strength 2x Duration a week for 10 visits These treatments will address the objective and functional deficits as defined above. The patient will be advanced safely and appropriately in order for the patient to progress towards his/her prior level of function. Additional exercises will be introduced and as well as a comprehensive home exercise program upon discharge, if needed, ?to ensure carryover of functional gains achieved in the clinic. This treatment plan has been reviewed and agreement upon by the patient.
--- NOTE | 2024-08-12 09:28 | PCPTNOTE ---
Cancelled session. Reports her sitter fell through.
--- NOTE | 2024-08-17 08:57 | PCPTNOTE ---
Patient called & cancelled scheduled appointment this date, no reason given. -Galina Pedraza, PT
--- NOTE | 2024-08-26 12:09 | PCPTNOTE ---
No call no show.
--- NOTE | 2024-11-08 16:32 | PCPTNOTE ---
pt attends 11 visits of skilled PT for cervical and lumbar pain. pt has not attended therapy since 08/19/24. Left message and have not heard back. pt is being discharged from therapy.
== END 2024-10-04 23:59 | disposition home or self-care (01) ==
LOC: CHSPT 08:40
PROVIDERS: PCP Family Medicine
DX: M54.12 Radiculopathy, cervical region (principal); M54.16 Radiculopathy, lumbar region; M54.2 Cervicalgia; M54.50 Low back pain, unspecified
CPT/HCPCS: 97012; 97014; 97110; 97112; 97140; 97150; 97161; 97530; G0283

== ENCOUNTER 2024-09-09 12:41 | Outpatient (CLI) | payer BC, SELFPAY ==
--- NOTE | ~2024-09-09 | MR_ITS ---
MRI of the lumbar spine Clinical History: Radiculopathy Technique: Axial T2-weighted images, and sagittal T1-weighted, T2-weighted, and T2 fat-sat images wer e acquired. Findings: There is no fracture or subluxation of lumbar spine. Vertebral bodies maintain normal heigh t and alignment. No bone marrow signal abnormality seen. At L1-L2, there is moderate degenerative disc narrowing with minimal disc bulge. No spinal canal sten osis, cord compression, or neural foraminal narrowing. Remaining lumbar intervertebral discs are normal in signal and position. No other disc bulge or herni ation seen. No spinal canal stenosis or neural foraminal narrowing at the remaining lumbar levels. Paravertebral soft tissues are unremarkable. Impression: Mild degenerative change at L1-L2, as above. Reviewed, dictated and finalized at [facility]. Impression: Mild degenerative change at L1-L2, as above.
== END 2024-09-09 12:42 | disposition home or self-care (01) ==
LOC: GOSHIMG 12:41
PROVIDERS: PCP Family Medicine; Visit Provider Psychiatry & Neurology Neurology
DX: M54.50 Low back pain, unspecified (principal); M54.17 Radiculopathy, lumbosacral region
CPT/HCPCS: 72148

== ENCOUNTER 2024-10-19 09:29 | Outpatient (CLI) | payer BC, SELFPAY ==
--- NOTE | 2024-10-19 09:40 | NEURO_ITS ---
Impression: # Non-diabetic complains of lower back pain. ? # Normal Nerve Conduction Study including F waves. ? # Normal Needle/ EMG exam. ? # Clinical correlation recommended. Nerve Conduction Studies ?Stim Site NR Peak (ms) P-T Amp (?V) Site1 Site2 Delta-P (ms) Dist (cm) Enrrique (m/s) Left Sup Fibular Anti Sensory (Ant Lat Mall) 14 cm ? 3.1 5.8 14 cm Ant Lat Mall 3.1 16.0 52 Right Sup Fibular Anti Sensory (Ant Lat Mall) 14 cm ? 3.1 16.4 14 cm Ant Lat Mall 2.9 16.0 55 Left Sural Anti Sensory (Lat Mall) Calf ? 3.8 5.5 Calf Lat Mall 3.8 16.0 42 Right Sural Anti Sensory (Lat Mall) Calf ? 3.2 5.4 Calf Lat Mall 3.2 16.0 50 ?Stim Site NR Onset (ms) O-P Amp (mV) Site1 Site2 Delta-0 (ms) Dist (cm) Enrrique (m/s) Left Peroneal Motor (Vastus Med) Ankle ? 3.3 3.9 Popit Ankle 7.8 39.0 50 Popit ? 11.1 3.1 Right Peroneal Motor (Vastus Med) Ankle ? 3.0 3.4 Popit Ankle 7.8 40.0 51 Popit ? 10.8 2.6 Left Tibial Motor (Abd Porras Brev) Ankle ? 4.0 7.3 Knee Ankle 7.8 42.0 54 Knee ? 12.9 5.5 Right Tibial Motor (Abd Porras Brev) Ankle ? 4.3 8.4 Knee Ankle 8.0 41.0 51 Knee ? 12.3 5.7 F Wave Studies ?NR F-Lat (ms) L-R F-Lat (ms) Left Peroneal (Mrkrs) (EDB) ? 43.83 0.70 Right Peroneal (Mrkrs) (EDB) ? 43.13 0.70 Left Tibial (Mrkrs) (Abd Hallucis) ? 46.39 1.61 Right Tibial (Mrkrs) (Abd Hallucis) ? 44.77 1.61 Electromyography ?Side Muscle Nerve Root Ins Act Fibs Amp Dur Recrt Comment Right AntTibialis Dp Br Fibular L4-5 Nml Nml Nml Nml Nml Right Gastroc Tibial S1-2 Nml Nml Nml Nml Nml Right Fibularis Long Sup Br Fibular L5-S1 Nml Nml Nml Nml Nml Right Flex Dig Long Tibial L5-S2 Nml Nml Nml Nml Nml Right Ext Dig Brev Dp Br Fibular L5, S1 Nml Nml Nml Nml Nml Right QuadratusFem QuadFemoris L4-5, S1 Nml Nml Nml Nml Nml Left AntTibialis Dp Br Fibular L4-5 Nml Nml Nml Nml Nml Left Gastroc Tibial S1-2 Nml Nml Nml Nml Nml Left Fibularis Long Sup Br Fibular L5-S1 Nml Nml Nml Nml Nml Left Flex Dig Long Tibial L5-S2 Nml Nml Nml Nml Nml Left Ext Dig Brev Dp Br Fibular L5, S1 Nml Nml Nml Nml Nml Left QuadratusFem QuadFemoris L4-5, S1 Nml Nml Nml Nml Nml
--- OUTSIDE RECORDS SUMMARY | 2024-10-19 09:52 | XMS_ITS | Patient Health Record ---
Author Organization [facility] [employer] 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 Role Phone Patricia Mcdonough Unavailable [phone] Emerita Michele Unavailable [phone] Allergies Allergen (clinical drug ingredient) Drug/Non Drug [...] Allergy 07/04/2023 Acti ve Reason For Referral No Information Medications Medication SIG (Take, Route, Frequency, Duration) Notes Start Date End Date Status Sertraline HCl 100 MG Tablet 1.5 tablet Oral Once a day; Duration: 90 days taking over script Active VESTURA (28) 3 MG-0.02 MG TABLET *Reorder from [employer] for eRx and Interaction Alerts* 07/04/2023 Active Sana Allergy 60 MG Tablet 1 tablet Orally Twice a day Active valACYclovir HCl 500 MG Tablet Oral 07/04/2023 Active traZODone HCl 50 MG Tablet 1 tablet at bedtime as needed Orally Once a day; Duration: 30 days 05/28/2024 Active Diclofenac Sodium 25 MG Tablet Delayed Release Oral 07/04/2023 Not-Taking Social History Tobacco Use: Social History Observation Description Date Details (start date - stop date) Unknown Sex Assigned At : Social History Observation Description Sex Assigned At Female Social History Miscellaneous: Social Info Question Answer Notes Advance Care Planning Are you your own decision-maker Yes Do you have Power of Commodity Loan Clerk for Health or [facility]? No Safety issues: Are there any firearms in the house? No Social History Social Info Question Answer Notes Household: Marital Status: Single Number of Adults in household: 2 Number of Children in Household: 1 Level of Education: Finished College Drug/Alcohol: Social Info Question Answer Notes Drugs Have you used drugs other than those for medical reasons in the past 12 months? No AUDIT-C (Standard) Points 3 Interpretation Positive Did you have a drink containing alcohol in the p ast year? Yes How often did you have six or more drinks on one occasion in the past year? Never (0 point) How many drinks did you have on a typical day when you were drinking in the past year? 1 or 2 drinks (0 point) How often did you have a drink containing alcohol in the past year? 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 Migrated Social History Migrated Social History Alcohol Intake: Occasional 05/26/2023,Tobacco Years: Former smoker 05/26/2023 Problems Problem Type SNOMED Code ICD Code Onset Dates Problem Status W/U Status Risk Notes Problem Severe recurrent major depression without psychotic features (50855441) Major depressive disorder, recurrent severe without psychotic features (F33.2) Active confirmed Problem Post-traumatic stress disorder (55730865) Post-traumatic stress disorder, unspecified (F43.10) Active confirmed Problem Primary insomnia (3549291) Primary insomnia (F51.01) Active confirmed Problem Asperger's syndrome (51486139) Asperger's syndrome (F84.5) Active confirmed Problem Autism spectrum disorder (78433453) Autism spectrum disorder (F84.0) Active confirmed Problem Fatigue (10378723) Fatigue, unspecified type (R53.83) Active confirmed Problem Hypersomnia (32031480) Hypersomnia (G47.10) Active confirmed Vital Signs Heart Rate 105 /min 05/28/2024 Height-cm 165.10 cm 05/28/2024 Blood pressure diastolic 88 mm Hg 05/28/2024 Weight-kg 110.22 kg 05/28/2024 Height 65.00 in 05/28/2024 Blood pressure systolic 119 mm Hg 05/28/2024 Weight 243 lbs 05/28/2024 BMI 40.43 kg/m2 05/28/2024 Encounters Encounter Location Date Provider Diagnosis [place] [address] [address] [facility] [address] [address] 01/09/2024 Emerita Michele [place] [address] [address] 02/13/2024 Emerita Michele Major depressive disorder, recurrent severe without psychotic features F33.2 ; Post-traumatic stress disorder, unspecified F43.10 and Autism spectrum disorder F84.0 [place] [address] [address] 05/28/2024 Patriciaalvin Mcdonough Post-traumatic stres s disorder, unspecified F43.10 ; Primary insomnia F51.01 ; Encounter for screening for depression Z13.31 ; Major depressive disorder, recurrent severe without psychotic features F33.2 and Encounter for screening for cardiovascular disorders Z13.6 [place] [address] [address] [facility]2024 [facility] [place] [address] [address] [facility] [place] [address] [address] 01/09/2024 Thena [place] [address] [address] 05/13/2024 Patricia Kurilla Major depressive disorder, recurrent severe without psychotic features F33.2 [place] [address] [address] [facility] [address] [address] 05/13/2024 Patricia Kurilla Major depressive disorder, recurrent severe without psychotic features F33.2 Assessments Encounter Date Diagnosis (ICD Code) Assessment Notes Treatment Notes Treatment Clinical Notes Section Notes 02/13/2024 Major depressive disorder, recurrent severe without [...] 02/13/2024 Autism spectrum disorder (ICD-10 - F84.0) 05/28/2024 Major depressive disorder, recurrent severe without psychotic features (ICD-10 - F33.2) SSRI/SNRI side effects discussed including but not limited to, gastric upset, nausea, vomiting, diarrhea and/or constipation, weight changes, sexual side effects including loss of libido, increased suicidal thoughts/behavi ors in children and young adults, and serotonin syndrome. 05/28/2024 Encounter for screening for depression (ICD-10 - Z13.31) 05/28/2024 Encounter for screening for cardiovascular disorders (ICD-10 - Z13.6) 05/28/2024 Other Start Trazodone 50mg WHW PRN for insomnia -referral sent to [facility] last year, encouraged to schedule [...] Of Treatment Next Appt Details Provider Name:Desi santos, 11/26/2024 08:30:00 AM, [address], [address], [place], [address], Insurance Providers Payer Name Payer Address Payer Phone Subscriber Number Group Number Insured Name Patient Relationship to Insured Coverage Start Date Coverage End Date [facility] [address] [place] [address] [id number] ALEXIA GONZALES Self - patient is the [...]
== END 2024-10-19 09:30 | disposition home or self-care (01) ==
PROVIDERS: PCP Family Medicine; Visit Provider Psychiatry & Neurology Neurology
DX: M54.50 Low back pain, unspecified (principal); M54.17 Radiculopathy, lumbosacral region
CPT/HCPCS: 95886; 95910